=== PATIENT | female | born 1990 | race Caucasian/White ===

== ENCOUNTER 2016-03-17 14:28 | Emergency (ER) | payer OTHER ==
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
[2016-03-17 17:22] VITALS: RESP 18; TEMP 99
[2016-03-17] MEDS ORDERED: IBUPROFEN 400 MG TAB PO STA (17:27)
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
[2016-03-17 17:47] VITALS: BP 115/67; PULSE 89
== END 2016-03-17 18:03 | disposition home or self-care (01) ==
LOC: EC 14:28
DX: S00.83XA Contusion of other part of head, initial encounter (principal); S00.81XA Abrasion of other part of head, initial encounter; K08.89 Other specified disorders of teeth and supporting structures; Y04.2XXA Assault by strike against or bumped into by another person, initial encounter
CPT/HCPCS: 70450; 70486; 72050; 99284

== ENCOUNTER 2016-10-13 10:49 | Emergency (ER) | payer OTHER ==
[2016-10-13] MEDS ORDERED: ACETAMINOPHEN TAB 325 MG TAB PO STA (11:48)
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
--- NOTE | 2016-10-13 12:36 | XR ---
EXAMINATION TYPE: XR ankle complete LT DATE OF EXAM: 10/13/2016 COMPARISON: 3 views HISTORY: Pain TECHNIQUE 3 views FINDINGS: : I see no fracture nor dislocation. Joint spaces are normal. Ankle mortise is anatomic. IMPRESSION: Negative left ankle exam.
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
[2016-10-13 13:03] VITALS: RESP 17
[2016-10-13 13:56] VITALS: BP 105/64; PULSE 87; TEMP 97.9
== END 2016-10-13 14:39 | disposition home or self-care (01) ==
LOC: EC 10:49
DX: S93.402A Sprain of unspecified ligament of left ankle, initial encounter (principal); S00.83XA Contusion of other part of head, initial encounter; S40.021A Contusion of right upper arm, initial encounter; S40.022A Contusion of left upper arm, initial encounter; S80.811A Abrasion, right lower leg, initial encounter; S80.812A Abrasion, left lower leg, initial encounter; F41.9 Anxiety disorder, unspecified; M54.2 Cervicalgia; R68.84 Jaw pain; F17.200 Nicotine dependence, unspecified, uncomplicated; Y04.0XXA Assault by unarmed brawl or fight, initial encounter; Y92.481 Parking lot as the place of occurrence of the external cause
CPT/HCPCS: 70450; 70486; 72125; 99284

== ENCOUNTER 2017-03-21 16:43 | Emergency (ER) | payer OTHER ==
[2017-03-21 16:52] VITALS: BP 132/71; PULSE 98; RESP 16; TEMP 97.2
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
[2017-03-21] MEDS ORDERED: ACETAMINOPHEN TAB 500 MG TAB PO STA (17:50)
--- NOTE | 2017-03-25 01:22 | CDI ---
Dear Tray Perez MD: Please provide information on whether patient is currently as given in Past medical history (14 weeks ). Thank you, Keo Saldivar, Clerical Aide. If you have any questions, please contact [employer] at [phone]. [facility]
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
== END 2017-03-21 18:00 | disposition home or self-care (01) ==
LOC: EC 16:43
DX: S00.03XA Contusion of scalp, initial encounter (principal); J34.89 Other specified disorders of nose and nasal sinuses; R45.83 Excessive crying of child, adolescent or adult; F17.200 Nicotine dependence, unspecified, uncomplicated; Z88.5 Allergy status to narcotic agent; Z88.8 Allergy status to other drugs, medicaments and biological substances; Y04.2XXA Assault by strike against or bumped into by another person, initial encounter
CPT/HCPCS: 70450; 72125; 99284

== ENCOUNTER 2017-05-05 22:22 | Emergency (ER) | payer OTHER ==
[2017-05-05 22:28] VITALS: BP 121/83; PULSE 108; RESP 18; TEMP 97.1
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
== END 2017-05-06 00:01 | disposition home or self-care (01) ==
LOC: EC 22:22
DX: S10.93XA Contusion of unspecified part of neck, initial encounter (principal); S00.83XA Contusion of other part of head, initial encounter; F17.200 Nicotine dependence, unspecified, uncomplicated; Z88.5 Allergy status to narcotic agent; Z88.6 Allergy status to analgesic agent; Y04.2XXA Assault by strike against or bumped into by another person, initial encounter; Y92.009 Unspecified place in unspecified non-institutional (private) residence as the place of occurrence of the external cause
CPT/HCPCS: 70450; 70486; 72125; 99283

== ENCOUNTER 2017-06-10 20:06 | Emergency (ER) | payer OTHER ==
[2017-06-10] MEDS ORDERED: SODIUM CHLORIDE 0.9% 1,000 ML IV STA (21:45)
[2017-06-10] MEDS ORDERED: KETOROLAC 30 MG/ML 1 ML VIAL IVP STA (21:45)
[2017-06-10] MEDS ORDERED: ONDANSETRON 4 MG/2 ML VIAL IVP STA (21:45)
[2017-06-10 22:20] LABS: Basophils # (A) 0.1 k/uL (0-0.2); Basophils % (A) 1 %; Eosinophils # (A) 0.2 k/uL (0-0.7); Eosinophils % (A) 2 %; HCT 35.9 % (34.0-46.0); HGB 11.9 gm/dL (11.4-16.0); Lymphocytes # (A) 1.9 k/uL (1.0-4.8); Lymphocytes % (A) 19 %; MCH 26.7 pg (25.0-35.0); MCHC 33.2 g/dL (31.0-37.0); MCV 80.6 fL (80.0-100.0); Mean Platelet Volume 7.2; Monocytes # (A) 0.6 k/uL (0-1.0); Monocytes % (A) 6 %; Neutrophils # (A) 6.9 k/uL (1.3-7.7); Neutrophils % (A) 70 %; Platelet Count 346 k/uL (150-450); RBC 4.45 m/uL (3.80-5.40); RDW 14.2 % (11.5-15.5); WBC 9.8 k/uL (3.8-10.6)
[2017-06-10 22:24] LABS: Appearance,Urine Cloudy (Clear); Bilirubin,Urine Negative (Negative); Blood,Urine Negative (Negative); Color,Urine Yellow; Glucose,Urine (UA) Negative (Negative); Ketones,Urine Negative (Negative); Leukocyte Esterase,Urine Trace (Negative); Mucus,Urine Many /hpf; Nitrite,Urine Negative (Negative); PH, Urine 7.5 (5.0-8.0); Protein,Urine 1+ (Negative); RBC,Urine 2 /hpf (0-5); Specific Gravity,Urine 1.027 (1.001-1.035); Squamous Epithelial Cell,Urine 8 /hpf (0-4); WBC,Urine 15 /hpf (0-5)
[2017-06-10 22:33] LABS: ALT 12 U/L (9-52); AST 23 U/L (14-36); Albumin 4.4 g/dL (3.5-5.0); Alkaline Phosphatase 62 U/L (38-126); Amylase 43 U/L (30-110); Anion Gap 12 mmol/L; Blood Urea Nitrogen 19 mg/dL (7-17); Calcium 9.7 mg/dL (8.4-10.2); Carbon Dioxide 30 mmol/L (22-30); Chloride 101 mmol/L (98-107); Glucose 82 mg/dL (74-99); Sodium 143 mmol/L (137-145); Total Bilirubin 0.3 mg/dL (0.2-1.3); Total Protein 8.1 g/dL (6.3-8.2)
[2017-06-10 22:34] LABS: Lipase 69 U/L (23-300)
--- NOTE | 2017-06-10 22:37 | ED ---
Abdominal Pain HPI - General Chief Complaint: Abdominal Pain Stated Complaint: abd bloating and pain Time Seen by Provider: 06/10/17 21:21 Source: patient, RN notes reviewed Mode of arrival: ambulatory Limitations: no limitations - History of Present Illness Initial Comments: This is a 26-year-old female who presents to the emergency department with chief complaint of abdominal pain. Patient states that she has been experiencing lower abdominal pain since . She states that she feels bloated. She describes the pain as a constant cramping with intermittent sharp pains that sometimes radiate up to her shoulder. She also reports right-sided flank pain intermittently. Patient states that her last menstrual period was 2 weeks ago. Denies any abnormal vaginal bleeding, discharge or odors. She reports normal bowel movements, denying constipation or diarrhea. Denies vomiting but does admit to associated nausea. She states that she is concerned about a vaginal foreign body as she used a new toy for intercourse with her boyfriend recently and then the pain started. She states that her abdomen does not usually look so distended. - Related Data Previous Rx's Medication Instructions Recorded metroNIDAZOLE [Flagyl] 500 mg PO BID #14 tab 06/11/17 Allergies Allergy/AdvReac Type Severity Reaction Status Date / Time acetaminophen Allergy Unknown Verified 06/10/17 21:20 [From Tylenol-Codeine #3] codeine Allergy Unknown Verified 06/10/17 21:20 [From Tylenol-Codeine #3] Review of Systems ROS Statement: Those systems with pertinent positive or pertinent negative responses have been documented in the HPI. ROS Other: All systems not noted in ROS Statement are negative. Past Medical History Past Medical History: No Reported History Additional Past Medical History / Comment(s): Obstetric history: This is her first and she has had care with me since 14 weeks. A+, abs neg, Rub Imm, RPR NR, Hep B neg, HIV NR. Normal 1hr GTT, GBS neg. History of Any Multi-Drug Resistant Organisms: None Reported Past Surgical History: Section Past Anesthesia/Blood Transfusion Reactions: No Reported Reaction Past Psychological History: Panic Disorder Smoking Status: Current every day smoker Past Alcohol Use History: Occasional Past Drug Use History: None Reported - Past Family History Father Family Medical History: No Reported History General Exam - General Exam Comments Initial Comments: General: Awake and alert, well-developed; in no apparent distress. HEENT: Head atraumatic, normocephalic. Pupils are equal, round and reactive to light. Extraocular movements intact. Oropharynx moist without erythema or exudate. Neck: Supple. Normal ROM. Cardiovascular: Regular rate and rhythm. No murmurs, rubs or gallops. Chest symmetrical. Respiratory: Lungs clear to auscultation bilaterally. No wheezes, rales or rhonchi. Normal respiratory effort with no use of accessory muscles. Abdomen: Soft, non-distended. Generalized tenderness on palpation, especially suprapubically.No rigidity, rebound or guarding. Normal bowel sounds in all 4 quadrants. No CVA tenderness bilaterally. Musculoskeletal: Normal ROM, no tenderness bilateral upper and lower extremities. Ambulating normally. Skin: [place], warm and dry without rashes or lesions. Neurological: Alert and oriented x3. CN II-XII grossly intact. Speech is fluent and answers are appropriate. No focal neuro deficits. Psychiatric: Normal mood and affect. No overt signs of depression or anxiety noted. Limitations: no limitations External exam: Present: normal external exam. Absent: erythema, swelling, lesions Speculum exam: Present: vaginal discharge (white malodorous ), cervical discharge. Absent: erythema Course Vital Signs 06/10/17 20:28 Temperature 98.7 F Pulse Rate 79 Respiratory 20 Rate Blood Pressure 130/72 O2 Sat by Pulse 100 Oximetry Medical Decision Making - Medical Decision Making This is a 26-year-old female who presented to the emergency department with chief complaint of lower abdominal pain and bloating. Vital signs are stable. Patient was also concerned about a potential vaginal foreign body as she has used a new sexual object with her boyfriend and has since noticed a change in vaginal discharge. On speculum examination, there is a thin white malodorous discharge. Trichomonas, Chlamydia and gonorrhea testing is pending. CBC was within normal limits. CMP did reveal a potassium at 3.3 and patient was given oral supplementation. UA revealed trace leukocyte esterase, 15 white blood cells, no blood. Patient is in no acute distress. She will be treated for potential bacterial vaginosis pending STD testing. A urine was sent for culture. KUB revealed a nonacute abdomen. Patient is in no acute distress and will be discharge home at this time. Patient is in agreement with plan and voices understanding. All questions were answered. - Lab Data Result diagrams: 06/10/17 22:02 06/10/17 22:02 Lab Results 06/10/17 06/10/17 06/10/17 Range/Units 22:02 22:02 22:02 WBC 9.8 (3.8-10.6) k/uL RBC 4.45 (3.80-5.40) m/uL Hgb 11.9 (11.4-16.0) gm/dL Hct 35.9 (34.0-46.0) % MCV 80.6 (80.0-100.0) fL MCH 26.7 (25.0-35.0) pg MCHC 33.2 (31.0-37.0) g/dL RDW 14.2 (11.5-15.5) % Plt Count 346 (150-450) k/uL Neutrophils % 70 % Lymphocytes % 19 % Monocytes % 6 % Eosinophils % 2 % Basophils % 1 % Neutrophils # 6.9 (1.3-7.7) k/uL Lymphocytes # 1.9 (1.0-4.8) k/uL Monocytes # 0.6 (0-1.0) k/uL Eosinophils # 0.2 (0-0.7) k/uL Basophils # 0.1 (0-0.2) k/uL Sodium 143 (137-145) mmol/L Potassium 3.3 L (3.5-5.1) mmol/L Chloride 101 (98-107) mmol/L Carbon Dioxide 30 (22-30) mmol/L Anion Gap 12 mmol/L BUN 19 H (7-17) mg/dL Creatinine 0.66 (0.52-1.04) mg/dL Est GFR (CKD-EPI)AfAm >90 (>60 ml/min/1.73 sqM) Est GFR (CKD-EPI)NonAf >90 (>60 ml/min/1.73 sqM) Glucose 82 (74-99) mg/dL Calcium 9.7 (8.4-10.2) mg/dL Total Bilirubin 0.3 (0.2-1.3) mg/dL AST 23 (14-36) U/L ALT 12 (9-52) U/L Alkaline Phosphatase 62 (38-126) U/L Total Protein 8.1 (6.3-8.2) g/dL Albumin 4.4 (3.5-5.0) g/dL Amylase 43 (30-110) U/L Lipase 69 (23-300) U/L Urine Color Urine Appearance (Clear) Urine pH (5.0-8.0) Ur Specific [place] (1.001-1.035) Urine Protein (Negative) Urine Glucose (UA) (Negative) Urine Ketones (Negative) Urine Blood (Negative) Urine Nitrite (Negative) Urine Bilirubin (Negative) Urine Urobilinogen (<2.0) mg/dL Ur Leukocyte Esterase (Negative) Urine RBC (0-5) /hpf Urine WBC (0-5) /hpf Ur Squamous Epith Cells (0-4) /hpf Urine Mucus (None) /hpf Urine HCG, Qual Not Detected (Not Detectd) 06/10/17 Range/Units 22:02 WBC (3.8-10.6) k/uL RBC (3.80-5.40) m/uL Hgb (11.4-16.0) gm/dL Hct (34.0-46.0) % MCV (80.0-100.0) fL MCH (25.0-35.0) pg MCHC (31.0-37.0) g/dL RDW (11.5-15.5) % Plt Count (150-450) k/uL Neutrophils % % Lymphocytes % % Monocytes % % Eosinophils % % Basophils % % Neutrophils # (1.3-7.7) k/uL Lymphocytes # (1.0-4.8) k/uL Monocytes # (0-1.0) k/uL Eosinophils # (0-0.7) k/uL Basophils # (0-0.2) k/uL Sodium (137-145) mmol/L Potassium (3.5-5.1) mmol/L Chloride (98-107) mmol/L Carbon Dioxide (22-30) mmol/L Anion Gap mmol/L BUN (7-17) mg/dL Creatinine (0.52-1.04) mg/dL Est GFR (CKD-EPI)AfAm (>60 ml/min/1.73 sqM) Est GFR (CKD-EPI)NonAf (>60 ml/min/1.73 sqM) Glucose (74-99) mg/dL Calcium (8.4-10.2) mg/dL Total Bilirubin (0.2-1.3) mg/dL AST (14-36) U/L ALT (9-52) U/L Alkaline Phosphatase (38-126) U/L Total Protein (6.3-8.2) g/dL Albumin (3.5-5.0) g/dL Amylase (30-110) U/L Lipase (23-300) U/L Urine Color Yellow Urine Appearance Cloudy H (Clear) Urine pH 7.5 (5.0-8.0) Ur Specific [place] 1.027 (1.001-1.035) Urine Protein 1+ H (Negative) Urine Glucose (UA) Negative (Negative) Urine Ketones Negative (Negative) Urine Blood Negative (Negative) Urine Nitrite Negative (Negative) Urine Bilirubin Negative (Negative) Urine Urobilinogen 2.0 (<2.0) mg/dL Ur Leukocyte Esterase Trace H (Negative) Urine RBC 2 (0-5) /hpf Urine WBC 15 H (0-5) /hpf Ur Squamous Epith Cells 8 H (0-4) /hpf Urine Mucus Many H (None) /hpf Urine HCG, Qual (Not Detectd) Disposition Clinical Impression: Abdominal pain, Vaginal discharge Disposition: HOME SELF-CARE Condition: Good Instructions: Abdominal Pain (ED), Vaginal Discharge (ED) Additional Instructions: Please take medications as prescribed. Please follow up with primary care provider within 1-2 days. Return to emergency department if symptoms should worsen or any concerns arise. Prescriptions: metroNIDAZOLE [Flagyl] 500 mg PO BID #14 tab Is patient prescribed a controlled substance at discharge?: No Referrals: None,Stated [Primary Care Provider] - 1-2 days Time of Disposition: 00:22
[2017-06-10 23:02] LABS: Potassium 3.3 mmol/L (3.5-5.1)
[2017-06-10] MEDS ORDERED: POTASSIUM CHLORIDE ER 20 MEQ TAB.ER PO STA (23:31)
--- NOTE | 2017-06-10 23:41 | XR ---
EXAMINATION TYPE: XR KUB DATE OF EXAM: 06/10/2017 COMPARISON: 07/03/2012 HISTORY: Abdominal pain and bloating TECHNIQUE: 2 views FINDINGS: Bowel gas pattern is normal. There is no sign of intestinal obstruction or pneumoperitoneum . Fecal pattern is normal. Lung bases are clear. There are no pathologic calcifications over the kidn eys. IMPRESSION: Nonacute abdomen. No change.
[2017-06-11 00:23] VITALS: BP 102/58; PULSE 65; RESP 14; TEMP 97.9
[2017-06-13 16:30] LABS: C. trachomatis,PCR Positive (Neg,Equiv); Chlamydia trachomatis Source Vagina
[2017-06-13 16:37] LABS: N. gonorrhoeae,PCR Negative (Neg,Equiv); Neisseria Source Vagina
== END 2017-06-11 00:45 | disposition home or self-care (01) ==
LOC: EC 20:06
DX: N89.8 Other specified noninflammatory disorders of vagina (principal); R10.30 Lower abdominal pain, unspecified; R14.0 Abdominal distension (gaseous); R11.0 Nausea; F17.200 Nicotine dependence, unspecified, uncomplicated; Z87.42 Personal history of other diseases of the female genital tract; Z88.5 Allergy status to narcotic agent; Z88.6 Allergy status to analgesic agent; Z98.890 Other specified postprocedural states
CPT/HCPCS: 36415; 80053; 82150; 83690; 85025; 81001; 81025; 87808; 87491; 87591; 87086; 74018; 99284; 96374; 96375; J2405; J1885

== ENCOUNTER 2018-01-29 03:18 | Emergency (ER) | payer OTHER ==
[2018-01-29] MEDS ORDERED: SODIUM CHLORIDE 0.9% 1,000 ML IV ONE (04:10)
[2018-01-29] MEDS ORDERED: MORPHINE SULFATE 4 MG/ML SYRINGE IVP STA (04:10)
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
[2018-01-29 04:34] LABS: Appearance,Urine Clear (Clear); Bilirubin,Urine Negative (Negative); Blood,Urine Negative (Negative); Color,Urine Yellow; Glucose,Urine (UA) Negative (Negative); Ketones,Urine Negative (Negative); Leukocyte Esterase,Urine Negative (Negative); Nitrite,Urine Negative (Negative); Protein,Urine Trace (Negative); Specific Gravity,Urine 1.026 (1.001-1.035); Urobilinogen,Urine <2.0 mg/dL (<2.0)
[2018-01-29 04:39] LABS: Basophils # (A) 0.1 k/uL (0-0.2); Basophils % (A) 1 %; Eosinophils # (A) 0.5 k/uL (0-0.7); Eosinophils % (A) 5 %; HCT 36.1 % (34.0-46.0); Lymphocytes # (A) 3.8 k/uL (1.0-4.8); Lymphocytes % (A) 39 %; MCH 28.5 pg (25.0-35.0); MCHC 33.2 g/dL (31.0-37.0); MCV 85.9 fL (80.0-100.0); Mean Platelet Volume 6.7; Monocytes # (A) 0.5 k/uL (0-1.0); Monocytes % (A) 5 %; Neutrophils # (A) 4.7 k/uL (1.3-7.7); Neutrophils % (A) 48 %; Platelet Count 321 k/uL (150-450); RBC 4.21 m/uL (3.80-5.40); WBC 9.9 k/uL (3.8-10.6)
[2018-01-29 04:43] LABS: ALT 16 U/L (9-52); AST 18 U/L (14-36); Alkaline Phosphatase 37 U/L (38-126); Anion Gap 9 mmol/L; Blood Urea Nitrogen 20 mg/dL (7-17); Calcium 9.4 mg/dL (8.4-10.2); Carbon Dioxide 24 mmol/L (22-30); Chloride 108 mmol/L (98-107); Glucose 87 mg/dL (74-99); Potassium 4.1 mmol/L (3.5-5.1); Sodium 141 mmol/L (137-145); Total Bilirubin 0.2 mg/dL (0.2-1.3); Total Protein 7.3 g/dL (6.3-8.2)
[2018-01-29 04:59] LABS: HCG,Quantitative Serum <2.4 mIU/mL
--- NOTE | 2018-01-29 05:30 | US ---
EXAMINATION TYPE: US transvaginal DATE OF EXAM: 01/29/2018 COMPARISON: NONE CLINICAL HISTORY: Pain. Pain TECHNIQUE: Transvaginal (TV). Transabdominal sonographic images of the pelvis were acquired. Trans vaginal sonographic images were medically necessary to better assess the following anatomy: EXAM MEASUREMENTS: Uterus: 8.4 x 3.9 x 3.8 cm Endometrial Stripe: 1.4 cm Right Ovary: 3.6 x 3.3 x 3.4 cm Left Ovary: 3.1 x 1.8 x 1.5 cm 1. Uterus: Anteverted wnl 2. Endometrium: wnl 3. Right Ovary: wnl 4. Left Ovary: wnl Spectral, color and waveform doppler imaging shows good arterial and venous flow within the ovaries ; there is no evidence for ovarian torsion. 5. Bilateral Adnexa: wnl 6. Posterior cul-de-sac: wnl IMPRESSION: Normal uterus and endometrium. Normal ovaries. No evidence of ovarian torsion.
[2018-01-29 05:55] VITALS: RESP 19
[2018-01-29 06:59] VITALS: BP 98/59; PULSE 78; TEMP 97.1
== END 2018-01-29 06:56 | disposition home or self-care (01) ==
LOC: EC 03:18
DX: R10.2 Pelvic and perineal pain (principal); R39.89 Other symptoms and signs involving the genitourinary system; R11.0 Nausea; F17.200 Nicotine dependence, unspecified, uncomplicated; Z88.5 Allergy status to narcotic agent; Z88.6 Allergy status to analgesic agent
CPT/HCPCS: 36415; 86900; 86901; 80053; 85025; 86850; 81003; 81025; 84702; 93975; 76830; 99284; 96374; J2270

== ENCOUNTER 2018-04-16 11:09 | Emergency (ER) | payer OTHER ==
[2018-04-16 11:14] VITALS: BP 108/78; PULSE 90; RESP 18; TEMP 98.8
[2018-04-16] MEDS ORDERED: ACETAMINOPHEN TAB 500 MG TAB PO STA (12:17)
--- NOTE | 2018-04-16 12:26 | ED ---
General Adult HPI - General Chief complaint: Extremity Problem,Nontraumatic Stated complaint: rt shoulder pain Time Seen by Provider: 04/16/18 12:03 Source: patient, RN notes reviewed Mode of arrival: ambulatory Limitations: no limitations - History of Present Illness Initial comments: Patient is a 27-year-old female who presents to the emergency department with complaint of right shoulder pain that has worsened in the past 3 days after she lifted her 3-year-old daughter. She states that she started having some mild right shoulder pain a couple months ago, but denies any injury at that time. She does recall that a few years ago she fell while rollerblading and tore something in one of her shoulders, however she is not sure which one. She has been taking ibuprofen at home for pain. The pain is worse with lifting things and reaching upward. The pain is better with supporting the right arm with the left arm. Patient denies any possibility of . Patient denies any recent fever, chills, shortness of breath, chest pain, back pain, abdominal pain , nausea or vomiting, dysuria or hematuria, constipation or diarrhea, headaches or visual changes, or any other complaints. - Related Data Home Medications Medication Instructions Recorded Confirmed Biotin 5 mg PO DAILY 04/16/18 04/16/18 Ibuprofen [Motrin Ib] 800 mg PO TID PRN 04/16/18 04/16/18 Previous Rx's Medication Instructions Recorded Orphenadrine [Norflex] 100 mg PO Q12H #20 tablet.er 04/16/18 Allergies Allergy/AdvReac Type Severity Reaction Status Date / Time codeine AdvReac "PASSED Verified 04/16/18 11:27 [From Tylenol-Codeine #3] OUT" Review of Systems ROS Statement: Those systems with pertinent positive or pertinent negative responses have been documented in the HPI. ROS Other: All systems not noted in ROS Statement are negative. Past Medical History Past Medical History: No Reported History Additional Past Medical History / Comment(s): Obstetric history: This is her first and she has had care with me since 14 weeks. A+, abs neg, Rub Imm, RPR NR, Hep B neg, HIV NR. Normal 1hr GTT, GBS neg. History of Any Multi-Drug Resistant Organisms: None Reported Past Surgical History: Section Past Anesthesia/Blood Transfusion Reactions: No Reported Reaction Past Psychological History: Anxiety, Panic Disorder Smoking Status: Current some day smoker Past Alcohol Use History: Occasional Past Drug Use History: None Reported - Past Family History Father Family Medical History: No Reported History General Exam Limitations: no limitations General appearance: alert, in no apparent distress Head exam: Present: atraumatic, normocephalic Eye exam: Present: normal appearance Neck exam: Present: normal inspection, full ROM. Absent: tenderness Respiratory exam: Present: normal lung sounds bilaterally. Absent: wheezes, rales, rhonchi Cardiovascular Exam: Present: regular rate, normal rhythm Extremities exam: Present: normal inspection, normal capillary refill, other ( Radial pulses palpable and strong bilaterally. Sensation intact bilateral upper extremities. Right shoulder AROM limited due to pain. 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 ) Neurological exam: Present: alert, oriented X3 Course Vital Signs 04/16/18 11:09 Temperature 98.8 F Pulse Rate 90 Respiratory 18 Rate Blood Pressure 108/78 O2 Sat by Pulse 98 Oximetry Medical Decision Making - Medical Decision Making Patient given Tylenol here. Right shoulder x-ray is negative. Will place right upper extremity in a sling for 2 days. Patient states she does not need a prescription for ibuprofen. Will prescribe Norflex. Will refer to orthopedics. Case discussed in detail with attending physician Dr. Feliz. Disposition Clinical Impression: Right shoulder strain Disposition: HOME SELF-CARE Condition: Good Instructions (If sedation given, give patient instructions): Muscle Strain (ED) Additional Instructions: Follow-up with your PCP and orthopedics in 1-2 days. You may use the right upper extremity sling for 2 days. Take ibuprofen as needed for pain. Take Norflex as needed for muscle pain/spasms. Return to the emergency department if your symptoms worsen or other concerns. Prescriptions: Orphenadrine [Norflex] 100 mg PO Q12H #20 tablet.er Is patient prescribed a controlled substance at d/c from ED?: No Referrals: Di Landa MD [Primary Care Provider] - 1-2 days Sterling Herbert MD [STAFF PHYSICIAN] - 1-2 days Time of Disposition: 13:04
--- NOTE | 2018-04-16 12:37 | XR ---
EXAMINATION TYPE: XR shoulder complete RT DATE OF EXAM: 04/16/2018 COMPARISON: None HISTORY: Pain TECHNIQUE: Three views are submitted. FINDINGS: The osseous structures are intact. There is no acute fracture or dislocation. The AC joint is maint ained. IMPRESSION: 1. No acute process.
== END 2018-04-16 13:21 | disposition home or self-care (01) ==
LOC: EC 11:09
DX: S46.911A Strain of unspecified muscle, fascia and tendon at shoulder and upper arm level, right arm, initial encounter (principal); F17.200 Nicotine dependence, unspecified, uncomplicated; Z79.899 Other long term (current) drug therapy; Z88.5 Allergy status to narcotic agent; Z88.6 Allergy status to analgesic agent; X50.0XXA Overexertion from strenuous movement or load, initial encounter
CPT/HCPCS: 99283

== ENCOUNTER → 2018-06-06 | Outpatient (CLI) | payer OTHER ==
--- NOTE | 2018-06-09 10:14 | USB ---
Reason for exam: clinical finding. History: Family history of breast cancer in grandmother at age 68. Indicated problem(s): palpable abnormality in the right breast. Physical Findings: Nurse Summary: right breast palpable 7 o'clock 2 x 1.5cm, tender, movable (nurse ts). US Breast RT Right complete breast ultrasound includes all four quadrants, the retroareolar region and axilla. Finding demonstrates no cystic or solid lesion seen. These results were verbally communicated with the patient and result sheet given to the patient on 06/06/18. ASSESSMENT: Negative, BI-RAD 1 RECOMMENDATION: Clinical management of the right breast. Manage patient on a clinical basis.
== END ==
LOC: RADUSWWP 14:56
PROVIDERS: ATTEND Family Medicine
DX: N63.10 Unspecified lump in the right breast, unspecified quadrant (principal)

== ENCOUNTER → 2018-08-25 | Outpatient (CLI) | payer OTHER ==
--- NOTE | 2018-08-25 19:05 | US ---
EXAMINATION TYPE: Transabdominal DATE OF EXAM: 08/25/2018 4:11 PM COMPARISON: NONE CLINICAL HISTORY: Z36 Confirm Dates. Patient stated unsure of dates; ; C Section x 1. EXAM PERFORMED: Transabdominal (TA) EXAM MEASUREMENTS: GESTATIONAL AGE / DATING Physician Established: Not yet established Dates by LMP: LMP unknown Dates by Current Scan for: (12 weeks/6 days) EDC: 03/03/2019 MATERNAL ANATOMY Uterus: 12.7 x 9.6 x 5.8cm Right Ovary: 4.3 x 2.9 x 2.9cm Left Ovary: 2.2 x 5.6 x 3.1cm Post CDS / Adnexa: wnl Presence of free fluid: no Presence of corpus luteal cyst: possibly in right ovary = 2.0 x 1.6 x 1.9cm Presence of subchorionic bleed: no GESTATION / SURVEY CRL: 6.5cm (12 weeks/6 days) Yolk Sac (normal less than 6mm): not seen Heart Rate: 157 bpm Rhythm: Normal IUP: Viable IUP Nuchal Translucency 10-14wks (normal less than 3mm): 1.3mm Date of LMP: unknown Beta HcG (if available): Not available at this time Single, viable IUP, 12 weeks/6 days, EDC: 03/03/2019, HR 157bpm. IMPRESSION: Single, viable IUP, 12 weeks/6 days, EDC: 03/03/2019, HR 157bpm.
== END | disposition home or self-care (01) ==
LOC: RADUSWWP 15:44
PROVIDERS: ATTEND Obstetrics & Gynecology
DX: Z36.89 Encounter for other specified antenatal screening (principal)
CPT/HCPCS: 76801; 76813

== ENCOUNTER 2018-10-07 21:30 | Emergency (ER) | payer OTHER ==
[2018-10-07 21:48] VITALS: RESP 16
--- NOTE | 2018-10-07 22:15 | ED ---
Psych HPI - General Source: patient Mode of arrival: ambulatory <Di Jarvis - Last Filed: 10/07/18 23:28> <Giovani Dominguez - Last Filed: 10/08/18 03:06> - General Chief Complaint: Psychiatric Symptoms Stated Complaint: Mental health, 19 weeks Time Seen by Provider: 10/07/18 21:50 - History of Present Illness Initial Comments: Patient is a 28-year-old female presenting to the emergency Department with complaints of suicidal ideation since this morning. Patient is 19 weeks . Patient's OB is Dr. Han. Patient states she has a history of depression and anxiety and used to be on medications before this . Patient states she did tell stopped taking the medication secondary to the . Patient states she had her daughter with her for most the day and then when she went back with her father patient states she became more and more depressed. Patient states she was driving around and then had urges to crash with another vehicle. Patient states she does not want to harm anybody else so that's why she drove here instead. Patient admits to marijuana use. Patient denies other drug or alcohol use. Patient denies homicidal thoughts. Patient states she did make an appointment with a psychiatrist for next week. Patient denies any other medical history. No other complaints at this time. Patient denies fever, chills, vomiting, abdominal pain, vaginal bleeding. (Rubi Jarvis) - Related Data Home Medications Medication Instructions Recorded Confirmed No Known Home Medications 10/07/18 10/07/18 Allergies Allergy/AdvReac Type Severity Reaction Status Date / Time codeine AdvReac "PASSED Verified 10/07/18 22:14 [From Tylenol-Codeine #3] OUT" Review of Systems ROS Other: All systems not noted in ROS Statement are negative. <Di Jarvis - Last Filed: 10/07/18 23:28> ROS Other: All systems not noted in ROS Statement are negative. <Giovani Dominguez - Last Filed: 10/08/18 03:06> ROS Statement: Those systems with pertinent positive or pertinent negative responses have been documented in the HPI. Past Medical History Past Medical History: No Reported History Additional Past Medical History / Comment(s): Obstetric history: This is her first and she has had care with me since 14 weeks. A+, abs neg, Rub Imm, RPR NR, Hep B neg, HIV NR. Normal 1hr GTT, GBS neg. History of Any Multi-Drug Resistant Organisms: None Reported Past Surgical History: Section Past Anesthesia/Blood Transfusion Reactions: No Reported Reaction Past Psychological History: Anxiety, Panic Disorder Smoking Status: Current some day smoker Past Alcohol Use History: Occasional Past Drug Use History: None Reported - Past Family History Father Family Medical History: No Reported History <Di Jarvis - Last Filed: 10/07/18 23:28> General Exam Limitations: no limitations <Di Jarvis - Last Filed: 10/07/18 23:28> - General Exam Comments Initial Comments: GENERAL: Well-appearing, well-nourished and in no acute distress. Patient is upset and crying during exam. HEAD: Atraumatic, normocephalic. EYES: Pupils equal round and reactive to light, extraocular movements intact, sclera anicteric, conjunctiva are normal. ENT: TMs normal, nares patent, oropharynx clear without exudates. Moist mucous membranes. NECK: Normal range of motion, supple without lymphadenopathy or JVD. LUNGS: Breath sounds clear to auscultation bilaterally and equal. No wheezes rales or rhonchi. HEART: Regular rate and rhythm without murmurs, rubs or gallops. ABDOMEN: Soft, nontender, normoactive bowel sounds. No guarding, no rebound. No masses appreciated. Patient is 19 weeks . : Deferred EXTREMITIES: Normal range of motion, no pitting or edema. No clubbing or cyanosis. NEUROLOGICAL: Cranial nerves II through XII grossly intact. Normal speech, normal gait. PSYCH: Patient is crying during exam, anxious. SKIN: Warm, Dry, normal turgor, no rashes or lesions noted. (Di Jarvis) Course Vital Signs 10/07/18 21:45 Temperature 97.5 F L Pulse Rate 112 H Respiratory 16 Rate Blood Pressure 113/75 O2 Sat by Pulse 99 Oximetry Medical Decision Making - Lab Data Result diagrams: 10/07/18 22:20 10/07/18 22:20 <Di Jarvis - Last Filed: 10/07/18 23:28> - Lab Data Result diagrams: 10/07/18 22:20 10/07/18 22:20 <Giovani Dominguez - Last Filed: 10/08/18 03:06> - Medical Decision Making Patient is a 28-year-old female presenting after having homicidal thoughts of driving her car today. Patient is 19 weeks . Patient states she has been depressed and anxious during this whole . Patient states she feels really alone. Patient was driving around today and had thoughts of crash ing her vehicle with another car. Patient states she does not want to harm anybody else's foot she drove here instead and would like treatment. BAP 0.0. CBC, CMP are within normal limits. UA shows no signs of infection. Urine tox is only positive for marijuana. EPS was made aware of patient. (Di Jarvis) - Lab Data Lab Results 10/07/18 10/07/18 10/07/18 Range/Units 22:20 22:20 22:20 WBC 10.8 H (3.8-10.6) k/uL RBC 3.75 L (3.80-5.40) m/uL Hgb 10.9 L (11.4-16.0) gm/dL Hct 33.3 L (34.0-46.0) % MCV 88.7 (80.0-100.0) fL MCH 29.0 (25.0-35.0) pg MCHC 32.7 (31.0-37.0) g/dL RDW 14.1 (11.5-15.5) % Plt Count 266 (150-450) k/uL Neutrophils % 66 % Lymphocytes % 22 % Monocytes % 6 % Eosinophils % 4 % Basophils % 0 % Neutrophils # 7.2 (1.3-7.7) k/uL Lymphocytes # 2.4 (1.0-4.8) k/uL Monocytes # 0.6 (0-1.0) k/uL Eosinophils # 0.4 (0-0.7) k/uL Basophils # 0.0 (0-0.2) k/uL Sodium 137 (137-145) mmol/L Potassium 3.5 (3.5-5.1) mmol/L Chloride 106 (98-107) mmol/L Carbon Dioxide 24 (22-30) mmol/L Anion Gap 7 mmol/L BUN 12 (7-17) mg/dL Creatinine 0.50 L (0.52-1.04) mg/dL Est GFR (CKD-EPI)AfAm >90 (>60 ml/min/1.73 sqM) Est GFR (CKD-EPI)NonAf >90 (>60 ml/min/1.73 sqM) Glucose 78 (74-99) mg/dL Calcium 9.1 (8.4-10.2) mg/dL Total Bilirubin 0.2 (0.2-1.3) mg/dL AST 18 (14-36) U/L ALT 11 (9-52) U/L Alkaline Phosphatase 42 (38-126) U/L Total Protein 6.9 (6.3-8.2) g/dL Albumin 3.6 (3.5-5.0) g/dL Urine Color Light Yellow Urine Appearance Clear (Clear) Urine pH 7.0 (5.0-8.0) Ur Specific Daniel 1.007 (1.001-1.035) Urine Protein Negative (Negative) Urine Glucose (UA) Negative (Negative) Urine Ketones Negative (Negative) Urine Blood Negative (Negative) Urine Nitrite Negative (Negative) Urine Bilirubin Negative (Negative) Urine Urobilinogen <2.0 (<2.0) mg/dL Ur Leukocyte Esterase Negative (Negative) Urine Opiates Screen Not Detected (NotDetected) Ur Oxycodone Screen Not Detected (NotDetected) Urine Methadone Screen Not Detected (NotDetected) Ur Propoxyphene Screen Not Detected (NotDetected) Ur Barbiturates Screen Not Detected (NotDetected) U Tricyclic Antidepress Not Detected (NotDetected) Ur Phencyclidine Scrn Not Detected (NotDetected) Ur Amphetamines Screen Not Detected (NotDetected) U Methamphetamines Scrn Not Detected (NotDetected) U Benzodiazepines Scrn Not Detected (NotDetected) Urine Cocaine Screen Not Detected (NotDetected) U Marijuana (THC) Screen Detected H (NotDetected) Disposition <Di Jarvis - Last Filed: 10/07/18 23:28> Is patient prescribed a controlled substance at d/c from ED?: No <Giovani Dominguez - Last Filed: 10/08/18 03:06> Clinical Impression: Mood disorder Disposition: HOME SELF-CARE Condition: Good Instructions (If sedation given, give patient instructions): Mood Disorders (ED) Referrals: Di Landa MD [Primary Care Provider] - 1-2 days
[2018-10-07 22:27] LABS: Basophils % (A) 0 %; Eosinophils # (A) 0.4 k/uL (0-0.7); Eosinophils % (A) 4 %; HCT 33.3 % (34.0-46.0); HGB 10.9 gm/dL (11.4-16.0); Lymphocytes # (A) 2.4 k/uL (1.0-4.8); Lymphocytes % (A) 22 %; MCHC 32.7 g/dL (31.0-37.0); MCV 88.7 fL (80.0-100.0); Mean Platelet Volume 7.4; Monocytes # (A) 0.6 k/uL (0-1.0); Monocytes % (A) 6 %; Neutrophils # (A) 7.2 k/uL (1.3-7.7); Neutrophils % (A) 66 %; Platelet Count 266 k/uL (150-450); RBC 3.75 m/uL (3.80-5.40); RDW 14.1 % (11.5-15.5); WBC 10.8 k/uL (3.8-10.6)
[2018-10-07 22:28] LABS: Appearance,Urine Clear (Clear); Bilirubin,Urine Negative (Negative); Blood,Urine Negative (Negative); Color,Urine Light Yellow; Glucose,Urine (UA) Negative (Negative); Ketones,Urine Negative (Negative); Leukocyte Esterase,Urine Negative (Negative); Nitrite,Urine Negative (Negative); Protein,Urine Negative (Negative); Specific Gravity,Urine 1.007 (1.001-1.035); Urobilinogen,Urine <2.0 mg/dL (<2.0)
[2018-10-07 22:39] LABS: ALT 11 U/L (9-52); AST 18 U/L (14-36); African American GFR (CKD) >90 (>60 ml/min/1.73 sqM); Albumin 3.6 g/dL (3.5-5.0); Alkaline Phosphatase 42 U/L (38-126); Amphetamine Screen,Urine Not Detected (NotDetected); Anion Gap 7 mmol/L; Barbiturate Screen,Urine Not Detected (NotDetected); Benzodiazepines Screen,Urine Not Detected (NotDetected); Blood Urea Nitrogen 12 mg/dL (7-17); Calcium 9.1 mg/dL (8.4-10.2); Carbon Dioxide 24 mmol/L (22-30); Chloride 106 mmol/L (98-107); Cocaine Screen,Urine Not Detected (NotDetected); Glucose 78 mg/dL (74-99); Methadone Screen, Urine Not Detected (NotDetected); Opiate Screen,Urine Not Detected (NotDetected); Oxycodone Screen, Urine Not Detected (NotDetected); Phencyclidine Screen,Urine Not Detected (NotDetected); Potassium 3.5 mmol/L (3.5-5.1); Sodium 137 mmol/L (137-145); Total Bilirubin 0.2 mg/dL (0.2-1.3); Total Protein 6.9 g/dL (6.3-8.2); Tricyclic Antidepressant,Urine Not Detected (NotDetected); Urn Cannabinoid Scrn Detected (NotDetected)
[2018-10-07] MEDS ORDERED: ONDANSETRON ODT 4 MG TAB PO STA (23:48)
[2018-10-08 03:32] VITALS: BP 103/71; PULSE 60; TEMP 98.3
== END 2018-10-08 03:32 | disposition home or self-care (01) ==
LOC: EC 21:30
DX: O99.342 Other mental disorders complicating pregnancy, second trimester (principal); R45.851 Suicidal ideations; F32.9 Major depressive disorder, single episode, unspecified; F41.9 Anxiety disorder, unspecified; O99.333 Smoking (tobacco) complicating pregnancy, third trimester; O99.322 Drug use complicating pregnancy, second trimester; F12.90 Cannabis use, unspecified, uncomplicated; Z3A.19 19 weeks gestation of pregnancy; Z88.5 Allergy status to narcotic agent; Z88.6 Allergy status to analgesic agent
CPT/HCPCS: 36415; 80053; 80306; 81003; 82075; 85025; 99285

== ENCOUNTER 2018-12-29 14:57 | Outpatient (CLI) | payer OTHER ==
[2018-12-29 15:39] VITALS: BP 110/64; PULSE 76; RESP 18; TEMP 97.2
[2018-12-29 16:28] LABS: Appearance,Urine Clear (Clear); Bilirubin,Urine Negative (Negative); Blood,Urine Negative (Negative); Color,Urine Yellow; Glucose,Urine (UA) Negative (Negative); Ketones,Urine 1+ (Negative); Leukocyte Esterase,Urine Negative (Negative); Mucus,Urine Moderate /hpf; Nitrite,Urine Negative (Negative); PH, Urine 6.5 (5.0-8.0); Protein,Urine 1+ (Negative); RBC,Urine 1 /hpf (0-5); Specific Gravity,Urine 1.036 (1.001-1.035); Squamous Epithelial Cell,Urine 6 /hpf (0-4); WBC,Urine 1 /hpf (0-5)
--- NOTE | 2019-01-13 08:25 | P.MSEPDOC ---
Presenting Problems - Arrival Data Date of Arrival on Unit: 12/29/18 Time of Arrival on Unit: 14:57 Mode of Transport: Wheelchair - Complaint OB-Reason for Admission/Chief Complaint: Pain Comment: "pressure/burning left of umbilicus" which, "worsens with movement." Medical History - Information : 3 Para: 1 Term: 1 : 0 Abortions: Spontaneous or Elective: 1 Number of Living Children: 1 - Gestational Age Gestational Age by ANGELO (wks/days): 31 Weeks and 2 Days Review of Systems - Review of Systems Constitutional: No problems Breast: No problems ENT: No problems Cardiovascular: No problems Respiratory: No problems Gastrointestinal: No problems Genitourinary: No problems Musculoskeletal: No problems Neurological: No problems Skin: No problems Vital Signs - Temperature Temperature: 97.2 F Temperature Source: Temporal Artery Scan - Pulse Right Pulse Rate: 76 Pulse Assessment Method: Automatic Cuff - Respirations Respiratory Rate: 18 Oxygen Delivery Method: Room Air - Blood Pressure Right Arm Blood Pressure: 110/64 Blood Pressure Mean: 79 Blood Pressure Source: Automatic Cuff Medical Screen Scoring (Pre) - Cervical Exam Dilation: Exam Deferred Effacement: Exam Deferred Membranes: Intact - Uterine Contractions Frequency: N/A Duration: N/A Intensity: N/A - Maternal Vital Signs Maternal Temperature: N/A Maternal Blood Pressure: N/A Signs of Preeclampsia: N/A Maternal Respirations: N/A - Maternal Trauma Maternal Trauma: N/A - Assessment - Baby A Baseline FHR: 135 Heart Rate - NICHD Category: Category I (Normal) = 0 NST: Reactive Position: N/A Station: N/A - Total Score - Baby A Total Score - Baby A: 0 - Total Score - Baby B Total Score - Baby B: 0 - Total Score - Baby C Total Score - Baby C: 0 - Level of Risk - Baby A Level of Risk - Baby A: Low (0-5) - Level of Risk - Baby B Level of Risk - Baby B: Low (0-5) - Level of Risk - Baby C Level of Risk - Baby C: Low (0-5) Physician Notification (Pre) - Physician Notified Physician Notified Date: 12/29/18 Physician Notified Time: 15:25 New Order Received: Yes - Notification Comment Comment: ORders for UA, FFN, Cervical exam. If closed, don't send FFN. If closed and urine is clear, pt clear for d/c home with follow up instructions. Medical Screen Scoring (Post) - Cervical Exam Dilation: 0 cm = 0 Effacement: Exam Deferred Membranes: Intact - Uterine Contractions Frequency: N/A Duration: N/A Intensity: N/A - Maternal Vital Signs Maternal Temperature: N/A Maternal Blood Pressure: N/A Signs of Preeclampsia: N/A Maternal Respirations: N/A - Pain Assessment Pain Location and Character: Abdomen Pain Scale Used: Numeric (1 - 10) Pain Intensity: 4 Pain Management Goal: 0 Pain Description: *Acute, Burning, Pressure Pain Radiation Location: none Pain Frequency: Occasional Pain Duration Units: Minutes Pain Behavior: Vocalization Pain Aggravating Factors: Activity, Position Non-Pharmacological Interventions: Position/Reposition - Maternal Trauma Maternal Trauma: N/A - Assessment - Baby A Heart Rate: 135 Heart Rate - NICHD Category: Category I (Normal) = 0 NST: Reactive Position: N/A Station: N/A - Total Score Total Score - Baby A: 0 Total Score - Baby B: 0 Total Score - Baby C: 0 - Post Treatment Level of Risk Post Treatment Level of Risk - Baby A: Low (0-5) Post Treatment Level of Risk - Baby B: Low (0-5) Post Treatment Level of Risk - Baby C: Low (0-5) Physician Notification (Post) - Physician Notified Physician Notified Date: 12/29/18 Physician Notified Time: 16:34 Physician/Practitioner Notified:: Spoke With: Dr. Sharma New Order Received: No - Notification Comment Comment: Pt clear for d/c home and this time with follow up instructions. Pt to call Dr. Maldonado off for follow up apt this week in office. Disposition - Disposition OB Disposition: Discharge to home Discharge Date: 12/29/18 Discharge Time: 16:34 I agree with the RN Medical Screening Exam: Yes Risk & Benefit of care provided described in d/c instruction: Yes Diagnosis: RELATED CONDITIONS, UNSP, UNSPECIFIED TRIMESTER
== END 2018-12-29 16:40 | disposition home or self-care (01) ==
LOC: FBPOP 14:57
PROVIDERS: ATTEND Obstetrics & Gynecology
DX: O26.93 Pregnancy related conditions, unspecified, third trimester (principal)
CPT/HCPCS: 59025; 81001; G0463; 99213

== ENCOUNTER 2019-07-29 11:40 | Emergency (ER) | payer OTHER ==
[2019-07-29 11:45] VITALS: BP 102/58; PULSE 78; RESP 18; TEMP 98.3
--- NOTE | 2019-07-29 12:11 | XR ---
EXAMINATION TYPE: XR hand complete LT DATE OF EXAM: 07/29/2019 COMPARISON: NONE HISTORY: Pain TECHNIQUE: Three views are submitted. FINDINGS: There is a lucency through the trapezoid. The seen on the oblique image. This is suspicious for a fra cture. The remaining osseous structures intact. There is soft tissue edema. Joint spaces preserved. IMPRESSION: 1. Findings suspicious for a fracture involving the trapezoid correlate with point tenderness.
--- NOTE | 2019-07-29 12:19 | ED ---
Upper Extremity HPI - General Chief Complaint: Extremity Injury, Upper Stated Complaint: hand injury Time Seen by Provider: 07/29/19 11:47 Source: patient Mode of arrival: ambulatory Limitations: no limitations - History of Present Illness Initial Comments: 28 year female presenting for left hand injury. Patient states she slammed her hand a door yesterday she states she has pain at the base of her thumb. Patient states she is able to move the area however is painful denies any numbness tingling loss of sensation coolness pallor of the extremity denies any other areas of injury denies fall or trauma to head or neck. Remaining review of system negative patient denies any open lacerations or abrasions. - Related Data Home Medications Medication Instructions Recorded Confirmed Pnv,Calcium 72/Iron/Folic Acid 1 each PO DAILY 12/29/18 12/29/18 [ Plus Tablet] Allergies Allergy/AdvReac Type Severity Reaction Status Date / Time No Known Allergies Allergy Verified 07/29/19 11:45 Review of Systems ROS Statement: Those systems with pertinent positive or pertinent negative responses have been documented in the HPI. ROS Other: All systems not noted in ROS Statement are negative. Past Medical History Past Medical History: No Reported History Additional Past Medical History / Comment(s): Obstetric history: This is her first and she has had care with me since 14 weeks. A+, abs neg, Rub Imm, RPR NR, Hep B neg, HIV NR. Normal 1hr GTT, GBS neg. History of Any Multi-Drug Resistant Organisms: None Reported Past Surgical History: Section Past Anesthesia/Blood Transfusion Reactions: No Reported Reaction Past Psychological History: Anxiety, Panic Disorder Smoking Status: Current some day smoker Past Alcohol Use History: Rare Past Drug Use History: Marijuana - Past Family History Father Family Medical History: No Reported History General Exam - General Exam Comments Initial Comments: General: The patient is awake and alert, in no distress Eye: Pupils are equal, round and reactive to light, extra-ocular movements are intact. No nystagmus. There is normal conjunctiva bilaterally. No signs of icterus. D. Cardiovascular: There is a regular rate and rhythm. No murmur, rub or gallop is appreciated. Respiratory: Lungs are clear to auscultation, respirations are non-labored, breath sounds are equal. No wheezes, stridor, rales, or rhonchi. Musculoskeletal: There is some bruising noted along the thenar eminence of the left hand. There is tenderness palpation of the scaphoid. Patient can range the wrist however this is very tender. She will go off of digits of the hand. There is evidence of wristdrop. Capillary refill less than 2 seconds +2 radial pulses equal and comparison bilaterally no decreased strength with sensation intact proximal distal injury site. Neurological: A&O x 3. CN II-XII intact grossly, There are no obvious motor or sensory deficits. Coordination appears grossly intact. Speech is normal. Skin: Skin is warm and dry and no rashes or lesions are noted. Psychiatric: Cooperative, appropriate mood & affect, normal judgment. Limitations: no limitations Course Vital Signs 07/29/19 11:43 Temperature 98.3 F Pulse Rate 78 Respiratory 18 Rate Blood Pressure 102/58 O2 Sat by Pulse 98 Oximetry Medical Decision Making - Medical Decision Making 28yo presenting today for cc of left hand pain. Xr revealed findings concerning for trapezoid fracture, point tenderness over area and appreciated lucency on XR. Concern for fracture, recommend orthopedic f/u in next 2-5 days, thumb spica splint placed. Return parameters discussed and importance of f/u. Patient discharged appearing well. Images and case discussed. Disposition Clinical Impression: Fracture of trapezoid, Hand pain Disposition: HOME SELF-CARE Condition: Good Instructions (If sedation given, give patient instructions): Wrist Fracture in Adults (ED), Suspected Fracture (ED) Additional Instructions: Please use medication as discussed. Please follow-up with orthopedics in the next 1-3 days. Please return to emergency room if the symptoms increase or worsen or for any other concerns. Is patient prescribed a controlled substance at d/c from ED?: No Referrals: None,Stated [Primary Care Provider] - 1-2 days Frank Peoples DO [Medical Doctor] - 1-2 days Time of Disposition: 12:19
== END 2019-07-29 12:46 | disposition home or self-care (01) ==
LOC: EC 11:40
DX: S62.182A Displaced fracture of trapezoid [smaller multangular], left wrist, initial encounter for closed fracture (principal); F17.200 Nicotine dependence, unspecified, uncomplicated; W22.8XXA Striking against or struck by other objects, initial encounter; Y93.89 Activity, other specified
CPT/HCPCS: 29125; 99283

== ENCOUNTER → 2019-08-07 | Outpatient (CLI) | payer OTHER ==
--- NOTE | 2019-08-07 15:02 | CT ---
EXAMINATION TYPE: CT wrist LT wo con DATE OF EXAM: 08/07/2019 COMPARISON: X-ray 07/29/2019 HISTORY: Nondisplaced fracture of trapezoid CT DLP: 95.9 mGycm Automated exposure control for dose reduction was used. FINDINGS: There is a fracture involving the trapezoid compatible with the x-ray finding with mild displacement. Fracture line measures approximately 0.8 mm in thickness. Fracture line extends to the lower interca rpal articular. There is adjacent soft tissue edema. Remaining osseous structures intact. IMPRESSION: MILDLY DISPLACED FRACTURE OF THE TRAPEZOID EXTENDING TO THE LOWER ARTICULAR SURFACE.
== END | disposition home or self-care (01) ==
LOC: RADCTMAIN 14:03
PROVIDERS: ATTEND Orthopaedic Surgery
DX: S62.185A Nondisplaced fracture of trapezoid [smaller multangular], left wrist, initial encounter for closed fracture (principal)

== ENCOUNTER 2022-02-11 15:42 | Emergency (ER) | payer OTHER ==
[2022-02-11] MEDS ORDERED: ONDANSETRON 4 MG/2 ML VIAL IVP STA (16:09)
--- NOTE | 2022-02-11 16:17 | ED ---
General Adult HPI - General Chief complaint: Nausea/Vomiting/Diarrhea Stated complaint: Early ,Vomiting Time Seen by Provider: 02/11/22 15:59 Source: patient, RN notes reviewed Mode of arrival: ambulatory Limitations: no limitations - History of Present Illness Initial comments: 31-year-old female, , LMP unknown, presents to the emergency department for evaluation of left lower quadrant abdominal pain and persistent nausea and vomiting. Patient states she is uncertain of how far along in she is. Has not been able to establish care with OB provider. Reports inability to tolerate most oral intake. Has tried treating nausea with OTC options such as preggie pops and peppermint with no success. States she does not have the energy or ability to care for HER 2 other children at home. States she is dizzy. Reports recent UTI and is unable to tolerate the antibiotic she was prescribed. Denies fever, chills, headache, chest pain, shortness of breath, diarrhea, dysuria, vaginal bleeding/discharge/leaking of fluids. - Related Data Home Medications Medication Instructions Recorded Confirmed Vit No.180/Iron/Folic 1 each PO DAILY 12/29/18 12/29/18 [ Plus Tablet] Previous Rx's Medication Instructions Recorded Yoo-Boui-Wwtjw Acid 1 each PO DAILY #30 cap 02/11/22 [-U Capsule] Allergies Allergy/AdvReac Type Severity Reaction Status Date / Time No Known Allergies Allergy Verified 02/11/22 15:46 Review of Systems ROS Statement: Those systems with pertinent positive or pertinent negative responses have been documented in the HPI. ROS Other: All systems not noted in ROS Statement are negative. Past Medical History Past Medical History: No Reported History Additional Past Medical History / Comment(s): Obstetric history: This is her fi rst and she has had care with me since 14 weeks. A+, abs neg, Rub Imm, RPR NR, Hep B neg, HIV NR. Normal 1hr GTT, GBS neg. History of Any Multi-Drug Resistant Organisms: None Reported Past Surgical History: Section Past Anesthesia/Blood Transfusion Reactions: No Reported Reaction Past Psychological History: Anxiety, Panic Disorder Smoking Status: Never smoker Past Alcohol Use History: Rare Past Drug Use History: Marijuana - Past Family History Father Family Medical History: No Reported History General Exam Limitations: no limitations General appearance: alert, in no apparent distress ENT exam: Present: mucous membranes moist Respiratory exam: Present: normal lung sounds bilaterally. Absent: respiratory distress, wheezes, rales, rhonchi, stridor Cardiovascular Exam: Present: regular rate, normal rhythm, normal heart sounds. Absent: systolic murmur, diastolic murmur, rubs, gallop, clicks GI/Abdominal exam: Present: soft, tenderness (left lower quadrant/groin), normal bowel sounds. Absent: distended, guarding, rebound, rigid Back exam: Absent: CVA tenderness (R), CVA tenderness (L) Neurological exam: Present: alert, oriented X3, normal gait Psychiatric exam: Present: anxious Skin exam: Present: warm, dry, intact, normal color. Absent: rash Course Vital Signs 02/11/22 02/11/22 15:43 19:01 Temperature 98.1 F 97.6 F Pulse Rate 113 H 83 Respiratory 18 16 Rate Blood Pressure 123/76 96/57 O2 Sat by Pulse 100 100 Oximetry - Reevaluation(s) Reevaluation #1: 02/11/22 18:45 Upon reassessment, patient is feeling improved. She is requesting a Zofran starter pack we discussed risks and benefits at length. She verbalizes understanding. Medical Decision Making - Medical Decision Making 31-year-old female, , presents to the emergency department for evaluation of persistent nausea and vomiting in early . Upon exam, patient is anxious, though well-appearing and in no acute distress. She is not actively vomiting at this time. She has no vaginal bleeding or discharge. Complains of mild abdominal cramping and left-sided discomfort with known ovarian cyst. Laboratory studies were obtained. Urinalysis is negative. Patient advised to discontinue antibiotic. IV infusion of D5 normal saline was given with improvement. Patient did receive Zofran after lengthy discussion of risks. Ultrasound was obtained showing IUP measuring 7 weeks 1 day and heart rate 149. Patient will be discharged home to establish care with [facility]. She is prescribed vitamins. Discussed options to manage nausea though patient is unconvinced. Return parameters discussed in detail. Patient verbalizes understanding and agrees with this plan. Attending: Eugene. - Lab Data Result diagrams: 02/11/22 16:38 02/11/22 16:38 Lab Results 02/11/22 02/11/22 02/11/22 Range/Units 16:38 16:38 16:38 WBC 11.5 H (3.8-10.6) k/uL RBC 4.07 (3.80-5.40) m/uL Hgb 12.9 (11.4-16.0) gm/dL Hct 35.0 (34.0-46.0) % MCV 86.0 (80.0-100.0) fL MCH 31.5 (25.0-35.0) pg MCHC 36.7 (31.0-37.0) g/dL RDW 12.0 (11.5-15.5) % Plt Count 271 (150-450) k/uL MPV 7.9 Neutrophils % 70 % Lymphocytes % 22 % Monocytes % 4 % Eosinophils % 2 % Basophils % 0 % Neutrophils # 8.1 H (1.3-7.7) k/uL Lymphocytes # 2.5 (1.0-4.8) k/uL Monocytes # 0.5 (0-1.0) k/uL Eosinophils # 0.3 (0-0.7) k/uL Basophils # 0.1 (0-0.2) k/uL Sodium 139 (137-145) mmol/L Potassium 3.4 L (3.5-5.1) mmol/L Chloride 105 (98-107) mmol/L Carbon Dioxide 25 (22-30) mmol/L Anion Gap 9 mmol/L BUN 8 (7-17) mg/dL Creatinine 0.50 L (0.52-1.04) mg/dL Est GFR (CKD-EPI)AfAm >90 (>60 ml/min/1.73 sqM) Est GFR (CKD-EPI)NonAf >90 (>60 ml/min/1.73 sqM) Glucose 84 (74-99) mg/dL Calcium 9.6 (8.4-10.2) mg/dL Total Bilirubin 0.4 (0.2-1.3) mg/dL AST 23 (14-36) U/L ALT 16 (4-34) U/L Alkaline Phosphatase 44 (38-126) U/L Total Protein 8.1 (6.3-8.2) g/dL Albumin 4.5 (3.5-5.0) g/dL HCG, Quant 637563.0 mIU/mL Urine Color Colorless Urine Appearance Clear (Clear) Urine pH 7.0 (5.0-8.0) Ur Specific [place] 1.003 (1.001-1.035) Urine Protein Negative (Negative) Urine Glucose (UA) Negative (Negative) Urine Ketones 1+ H (Negative) Urine Blood Negative (Negative) Urine Nitrite Negative (Negative) Urine Bilirubin Negative (Negative) Urine Urobilinogen <2.0 (<2.0) mg/dL Ur Leukocyte Esterase Negative (Negative) Urine HCG, Qual (Not Detectd) 02/11/22 Range/Units 16:38 WBC (3.8-10.6) k/uL RBC (3.80-5.40) m/uL Hgb (11.4-16.0) gm/dL Hct (34.0-46.0) % MCV (80.0-100.0) fL MCH (25.0-35.0) pg MCHC (31.0-37.0) g/dL RDW (11.5-15.5) % Plt Count (150-450) k/uL MPV Neutrophils % % Lymphocytes % % Monocytes % % Eosinophils % % Basophils % % Neutrophils # (1.3-7.7) k/uL Lymphocytes # (1.0-4.8) k/uL Monocytes # (0-1.0) k/uL Eosinophils # (0-0.7) k/uL Basophils # (0-0.2) k/uL Sodium (137-145) mmol/L Potassium (3.5-5.1) mmol/L Chloride (98-107) mmol/L Carbon Dioxide (22-30) mmol/L Anion Gap mmol/L BUN (7-17) mg/dL Creatinine (0.52-1.04) mg/dL Est GFR (CKD-EPI)AfAm (>60 ml/min/1.73 sqM) Est GFR (CKD-EPI)NonAf (>60 ml/min/1.73 sqM) Glucose (74-99) mg/dL Calcium (8.4-10.2) mg/dL Total Bilirubin (0.2-1.3) mg/dL AST (14-36) U/L ALT (4-34) U/L Alkaline Phosphatase (38-126) U/L Total Protein (6.3-8.2) g/dL Albumin (3.5-5.0) g/dL HCG, Quant mIU/mL Urine Color Urine Appearance (Clear) Urine pH (5.0-8.0) Ur Specific [place] (1.001-1.035) Urine Protein (Negative) Urine Glucose (UA) (Negative) Urine Ketones (Negative) Urine Blood (Negative) Urine Nitrite (Negative) Urine Bilirubin (Negative) Urine Urobilinogen (<2.0) mg/dL Ur Leukocyte Esterase (Negative) Urine HCG, Qual Detected (Not Detectd) - Radiology Data Radiology results: report reviewed, image reviewed ultrasound was obtained. Report was reviewed in its entirety. Impression per Dr. Babcock as #1. Single live intrauterine . #2. States the current scan for 7 weeksone day. #3. EDC: 09/29/2022. Disposition Clinical Impression: Vomiting during Disposition: HOME SELF-CARE Condition: Stable Instructions (If sedation given, give patient instructions): Nausea and Vomiting in (ED) Additional Instructions: Suggestions for nausea in : Eat small more frequent meals, sip water th roughout the day, peppermint and/or lindsay suckers, Unisom 25mg at bedtime, Vitamin B6 10-25mg three times daily. You are being given a Zofran starter pack to use sparingly. Take vitamin daily. Your ultrasound shows that you are 7 weeks 1 day. heart rate 149bpm. Establish with OB for further evaluation and treatment. Return to the emergency department with any new, worsening, or concerning symptoms. Prescriptions: Kgr-Sqms-Bcucz Acid [-U Capsule] 1 each PO DAILY #30 cap Is patient prescribed a controlled substance at d/c from ED?: No Referrals: Nonstaff,Physician [Primary Care Provider] - 1-2 days Marifer Irby MD [STAFF PHYSICIAN] - 1-2 days Time of Disposition: 18:56
[2022-02-11 16:52] LABS: Basophils # (A) 0.1 k/uL (0-0.2); Basophils % (A) 0 %; Eosinophils # (A) 0.3 k/uL (0-0.7); Eosinophils % (A) 2 %; HGB 12.9 gm/dL (11.4-16.0); Lymphocytes # (A) 2.5 k/uL (1.0-4.8); Lymphocytes % (A) 22 %; MCH 31.5 pg (25.0-35.0); MCHC 36.7 g/dL (31.0-37.0); Mean Platelet Volume 7.9; Monocytes # (A) 0.5 k/uL (0-1.0); Monocytes % (A) 4 %; Neutrophils # (A) 8.1 k/uL (1.3-7.7); Neutrophils % (A) 70 %; Platelet Count 271 k/uL (150-450); RBC 4.07 m/uL (3.80-5.40); WBC 11.5 k/uL (3.8-10.6)
[2022-02-11 17:00] LABS: ALT 16 U/L (4-34); AST 23 U/L (14-36); African American GFR (CKD) >90 (>60 ml/min/1.73 sqM); Albumin 4.5 g/dL (3.5-5.0); Alkaline Phosphatase 44 U/L (38-126); Anion Gap 9 mmol/L; Blood Urea Nitrogen 8 mg/dL (7-17); Calcium 9.6 mg/dL (8.4-10.2); Carbon Dioxide 25 mmol/L (22-30); Chloride 105 mmol/L (98-107); Glucose 84 mg/dL (74-99); Non-African American GFR(CKD) >90 (>60 ml/min/1.73 sqM); Potassium 3.4 mmol/L (3.5-5.1); Sodium 139 mmol/L (137-145); Total Bilirubin 0.4 mg/dL (0.2-1.3); Total Protein 8.1 g/dL (6.3-8.2)
[2022-02-11] MEDS ORDERED: DEXTROSE 5%-0.9% NACL 1,000 ML IV SCH (17:00)
[2022-02-11 17:10] LABS: Appearance,Urine Clear (Clear); Bilirubin,Urine Negative (Negative); Blood,Urine Negative (Negative); Color,Urine Colorless; Glucose,Urine (UA) Negative (Negative); Ketones,Urine 1+ (Negative); Leukocyte Esterase,Urine Negative (Negative); Nitrite,Urine Negative (Negative); Protein,Urine Negative (Negative); Specific Gravity,Urine 1.003 (1.001-1.035); Urobilinogen,Urine <2.0 mg/dL (<2.0)
--- NOTE | 2022-02-11 17:40 | US ---
EXAMINATION TYPE: Transabdominal DATE OF EXAM: 02/11/2022 5:14 PM COMPARISON: NONE CLINICAL HISTORY: left lower abdominal pain, LMP unknown, +preg test. LLQ pain, EXAM PERFORMED: OBTA EXAM MEASUREMENTS: GESTATIONAL AGE / DATING Physician Established: Not yet established Dates by LMP: LMP unknown Dates by First Scan: No previous this is first scan Dates by Current Scan for: (7 weeks/ 1 days) EDC: 09/29/2022 MATERNAL ANATOMY Uterus: 9.7 x 7.4 x 6.2cm Right Ovary: 1.9 x 1.4 x 1.2cm Left Ovary: 3.6 x 3.0 x 3.0cm Post CDS / Adnexa: wnl Presence of free fluid: no Presence of corpus luteal cyst: yes, left ov = 2.4 x 2.6 x 2.8cm Presence of subchorionic bleed: no GESTATION / SURVEY CRL: 1.0cm (7 weeks/1 days) MSD: wnl Yolk Sac (normal less than 6mm): 0.4cm Heart Rate: 149 bpm Rhythm: Normal IUP: Viable IUP Date of LMP: unknown Beta HcG (if available): pending IMPRESSION: 1. Single live intrauterine 2. Dates by Current Scan for: (7 weeks/ 1 days) 3. EDC: 09/29/2022
[2022-02-11] MEDS ORDERED: ONDANSETRON 4 MG ODT STARTER PACK 2 TAB BTL PO STA (18:56)
[2022-02-11 19:10] VITALS: BP 96/57; PULSE 83; RESP 16; TEMP 97.6
== END 2022-02-11 19:12 | disposition home or self-care (01) ==
LOC: EC 15:42
DX: O21.9 Vomiting of pregnancy, unspecified (principal); O99.341 Other mental disorders complicating pregnancy, first trimester; F41.9 Anxiety disorder, unspecified; O99.321 Drug use complicating pregnancy, first trimester; F12.90 Cannabis use, unspecified, uncomplicated; Z32.01 Encounter for pregnancy test, result positive
CPT/HCPCS: 36415; 80053; 85025; 81003; 81025; 84702; 76801; 99284; 96374; 96361 ×2; J2405; S0119

== ENCOUNTER 2022-02-15 07:19 | Emergency (ER) | payer OTHER ==
[2022-02-15] MEDS ORDERED: SODIUM CHLORIDE 0.9% 2,000 ML IV STA (07:39)
[2022-02-15] MEDS ORDERED: FAMOTIDINE 20 MG/2 ML VIAL IV STA (07:39)
[2022-02-15] MEDS ORDERED: ONDANSETRON 4 MG/2 ML VIAL IVP STA ×2 (07:39→09:16)
--- NOTE | 2022-02-15 07:42 | ED ---
General Adult HPI - General Chief complaint: Nausea/Vomiting/Diarrhea Stated complaint: Vomiting Time Seen by Provider: 02/15/22 07:31 Source: patient, RN notes reviewed Mode of arrival: ambulatory Limitations: no limitations - History of Present Illness Initial comments: Patient is a pleasant 31-year-old female presenting to the emergency department with concerns of vomiting. Patient has been vomiting over several weeks. Symptoms are a little bit worse today. Patient states she frequently urinates when she vomits and therefore was sitting on the toilet. Patient had a questionable syncopal episode of vomiting. Patient did fall towards the ground however no injury. No head injury. Patient denies any pelvic pain or vaginal bleeding. Patient has mild umbilical discomfort from a hernia which is chronic and unchanged. Patient was here within the past week or so and diagnosed with . - Related Data Home Medications Medication Instructions Recorded Confirmed Vit No.180/Iron/Folic 1 each PO DAILY 12/29/18 12/29/18 [ Plus Tablet] Previous Rx's Medication Instructions Recorded Hzy-Pqsp-Bytph Acid 1 each PO DAILY #30 cap 02/11/22 [-U Capsule] Ondansetron Odt [Zofran Odt] 4 mg PO Q8HR PRN #10 tab 02/15/22 Allergies Allergy/AdvReac Type Severity Reaction Status Date / Time No Known Allergies Allergy Verified 02/15/22 07:27 Review of Systems ROS Statement: Those systems with pertinent positive or pertinent negative responses have been documented in the HPI. ROS Other: All systems not noted in ROS Statement are negative. Constitutional: Denies: fever Eyes: Denies: eye pain ENT: Denies: ear pain Respiratory: Denies: cough Cardiovascular: Denies: chest pain Endocrine: Denies: fatigue Gastrointestinal: Reports: as per HPI, nausea, vomiting Genitourinary: Reports: as per HPI. Denies: dysuria Musculoskeletal: Denies: back pain Skin: Denies: rash Neurological: Denies: weakness Past Medical History Past Medical History: No Reported History Additional Past Medical History / Comment(s): Obstetric history: This is her first and she has had care with me since 14 weeks. A+, abs neg, Rub Imm, RPR NR, Hep B neg, HIV NR. Normal 1hr GTT, GBS neg. History of Any Multi-Drug Resistant Organisms: None Reported Past Surgical History: Section Past Anesthesia/Blood Transfusion Reactions: No Reported Reaction Past Psychological History: Anxiety, Panic Disorder Smoking Status: Never smoker Past Alcohol Use History: Rare Past Drug Use History: Marijuana - Past Family History Father Family Medical History: No Reported History General Exam Limitations: no limitations General appearance: alert, in no apparent distress Head exam: Present: normocephalic Eye exam: Present: normal appearance Neck exam: Present: normal inspection Respiratory exam: Present: normal lung sounds bilaterally Cardiovascular Exam: Present: regular rate, normal rhythm GI/Abdominal exam: Present: soft, normal bowel sounds, hernia (Small umbilical hernia that is reducible with mild tenderness.). Absent: distended, guarding, rebound, rigid, pulsatile mass Extremities exam: Present: normal inspection Neurological exam: Present: alert Psychiatric exam: Present: normal affect, normal mood Skin exam: Present: normal color Course Vital Signs 02/15/22 07:28 Temperature 98.3 F Pulse Rate 82 Respiratory 16 Rate Blood Pressure 118/81 O2 Sat by Pulse 97 Oximetry EKG Findings - EKG Results: EKG: interpreted by ERMD, sinus rhythm, normal axis, normal QRS, normal ST/T Medical Decision Making - Medical Decision Making Patient reevaluated and states she is starting to feel a little bit better. Patient still has some nausea and is receptive to repeat medication. Patient updated on results and need for follow-up. Patient states she does have an appointment to follow up with [facility]. Patient does request prescription. - Lab Data Result diagrams: 02/15/22 07:42 02/15/22 07:42 Lab Results 02/15/22 02/15/22 02/15/22 Range/Units 07:42 07:42 07:42 WBC 9.3 (3.8-10.6) k/uL RBC 3.98 (3.80-5.40) m/uL Hgb 12.1 (11.4-16.0) gm/dL Hct 34.5 (34.0-46.0) % MCV 86.7 (80.0-100.0) fL MCH 30.5 (25.0-35.0) pg MCHC 35.1 (31.0-37.0) g/dL RDW 12.1 (11.5-15.5) % Plt Count 256 (150-450) k/uL MPV 7.6 Neutrophils % 67 % Lymphocytes % 23 % Monocytes % 5 % Eosinophils % 3 % Basophils % 0 % Neutrophils # 6.2 (1.3-7.7) k/uL Lymphocytes # 2.1 (1.0-4.8) k/uL Monocytes # 0.4 (0-1.0) k/uL Eosinophils # 0.3 (0-0.7) k/uL Basophils # 0.0 (0-0.2) k/uL PT 10.1 (9.0-12.0) sec INR 1.0 (<1.2) APTT 24.2 (22.0-30.0) sec Sodium 137 (137-145) mmol/L Potassium 3.8 (3.5-5.1) mmol/L Chloride 107 (98-107) mmol/L Carbon Dioxide 22 (22-30) mmol/L Anion Gap 8 mmol/L BUN 12 (7-17) mg/dL Creatinine 0.48 L (0.52-1.04) mg/dL Est GFR (CKD-EPI)AfAm >90 (>60 ml/min/1.73 sqM) Est GFR (CKD-EPI)NonAf >90 (>60 ml/min/1.73 sqM) Glucose 82 (74-99) mg/dL Calcium 8.9 (8.4-10.2) mg/dL Total Bilirubin 0.4 (0.2-1.3) mg/dL AST 21 (14-36) U/L ALT 14 (4-34) U/L Alkaline Phosphatase 37 L (38-126) U/L Total Protein 7.2 (6.3-8.2) g/dL Albumin 4.1 (3.5-5.0) g/dL Amylase 55 (30-110) U/L Lipase 62 (23-300) U/L Blood Type Blood Type Recheck Bld Type Recheck Status 02/15/22 Range/Units 08:00 WBC (3.8-10.6) k/uL RBC (3.80-5.40) m/uL Hgb (11.4-16.0) gm/dL Hct (34.0-46.0) % MCV (80.0-100.0) fL MCH (25.0-35.0) pg MCHC (31.0-37.0) g/dL RDW (11.5-15.5) % Plt Count (150-450) k/uL MPV Neutrophils % % Lymphocytes % % Monocytes % % Eosinophils % % Basophils % % Neutrophils # (1.3-7.7) k/uL Lymphocytes # (1.0-4.8) k/uL Monocytes # (0-1.0) k/uL Eosinophils # (0-0.7) k/uL Basophils # (0-0.2) k/uL PT (9.0-12.0) sec INR (<1.2) APTT (22.0-30.0) sec Sodium (137-145) mmol/L Potassium (3.5-5.1) mmol/L Chloride (98-107) mmol/L Carbon Dioxide (22-30) mmol/L Anion Gap mmol/L BUN (7-17) mg/dL Creatinine (0.52-1.04) mg/dL Est GFR (CKD-EPI)AfAm (>60 ml/min/1.73 sqM) Est GFR (CKD-EPI)NonAf (>60 ml/min/1.73 sqM) Glucose (74-99) mg/dL Calcium (8.4-10.2) mg/dL Total Bilirubin (0.2-1.3) mg/dL AST (14-36) U/L ALT (4-34) U/L Alkaline Phosphatase (38-126) U/L Total Protein (6.3-8.2) g/dL Albumin (3.5-5.0) g/dL Amylase (30-110) U/L Lipase (23-300) U/L Blood Type A Positive Blood Type Recheck A Pos Bld Type Recheck Status No - Radiology Data Radiology results: report reviewed (Pelvic ultrasound shows single IUP 8week 1 day) Disposition Clinical Impression: Hyperemesis gravidarum Disposition: HOME SELF-CARE Condition: Stable Instructions (If sedation given, give patient instructions): Hyperemesis Gravidarum (ED) Additional Instructions: Please do follow-up with primary care physician and [facility] in the next couple days for recheck. Prescription has been sent to pharmacy. Return for pelvic pain, bleeding, uncontrolled vomiting, not tolerating oral intake, worsening symptoms or other concerns. Prescriptions: Ondansetron Odt [Zofran Odt] 4 mg PO Q8HR PRN #10 tab PRN Reason: Nausea Is patient prescribed a controlled substance at d/c from ED?: No Referrals: Selma Tang MD [STAFF PHYSICIAN] - 1-2 days Jolly Almanzar MD [STAFF PHYSICIAN] - 1-2 days Time of Disposition: 09:18
[2022-02-15 08:13] LABS: Basophils % (A) 0 %; Eosinophils # (A) 0.3 k/uL (0-0.7); Eosinophils % (A) 3 %; HCT 34.5 % (34.0-46.0); HGB 12.1 gm/dL (11.4-16.0); Lymphocytes # (A) 2.1 k/uL (1.0-4.8); Lymphocytes % (A) 23 %; MCH 30.5 pg (25.0-35.0); MCHC 35.1 g/dL (31.0-37.0); MCV 86.7 fL (80.0-100.0); Mean Platelet Volume 7.6; Monocytes # (A) 0.4 k/uL (0-1.0); Monocytes % (A) 5 %; Neutrophils # (A) 6.2 k/uL (1.3-7.7); Neutrophils % (A) 67 %; Platelet Count 256 k/uL (150-450); RBC 3.98 m/uL (3.80-5.40); RDW 12.1 % (11.5-15.5); WBC 9.3 k/uL (3.8-10.6)
[2022-02-15 08:27] LABS: Partial Thromboplastin Time 24.2 sec (22.0-30.0); Prothrombin Time 10.1 sec (9.0-12.0)
[2022-02-15 08:29] LABS: ALT 14 U/L (4-34); AST 21 U/L (14-36); African American GFR (CKD) >90 (>60 ml/min/1.73 sqM); Albumin 4.1 g/dL (3.5-5.0); Alkaline Phosphatase 37 U/L (38-126); Amylase 55 U/L (30-110); Anion Gap 8 mmol/L; Blood Urea Nitrogen 12 mg/dL (7-17); Calcium 8.9 mg/dL (8.4-10.2); Carbon Dioxide 22 mmol/L (22-30); Chloride 107 mmol/L (98-107); Glucose 82 mg/dL (74-99); Lipase 62 U/L (23-300); Non-African American GFR(CKD) >90 (>60 ml/min/1.73 sqM); Potassium 3.8 mmol/L (3.5-5.1); Sodium 137 mmol/L (137-145); Total Bilirubin 0.4 mg/dL (0.2-1.3); Total Protein 7.2 g/dL (6.3-8.2)
--- NOTE | 2022-02-15 09:07 | US ---
EXAMINATION TYPE: Transabdominal DATE OF EXAM: 02/15/2022 8:56 AM COMPARISON: 02/11/2022 CLINICAL HISTORY: Syncope. Vomiting EXAM PERFORMED: Transabdominal (TA) EXAM MEASUREMENTS: GESTATIONAL AGE / DATING Physician Established: Not yet established Dates by LMP: (7 weeks/4 days) EDC: 09/30/2022 Dates by First Scan: (7 weeks/1 days) EDC: 09/29/2022 Dates by Current Scan for: (8 weeks/1 days) EDC: 09/26/2022 MATERNAL ANATOMY Uterus: wnl Right Ovary: wnl Left Ovary: 2.7 x 2.6 x 2.5cm anechoic cyst Post CDS / Adnexa: wnl Presence of free fluid: No Presence of corpus luteal cyst: Yes Presence of subchorionic bleed: No GESTATION / SURVEY CRL: 1.69cm (8 weeks/1 days) MSD: wnl Yolk Sac (normal less than 6mm): 5.3mm Heart Rate: 174 bpm Rhythm: Normal IUP: Viable IUP Date of LMP: 12/24/2021 Beta HcG (if available): Unavailable IMPRESSION: Single viable intrauterine . Left ovarian corpus luteal cyst noted.
[2022-02-15 09:23] VITALS: RESP 18
[2022-02-15 09:53] VITALS: BP 122/71; PULSE 71; TEMP 98.1
[2022-02-15 10:26] LABS: HCG,Quantitative Serum >225000.0 mIU/mL
== END 2022-02-15 09:53 | disposition home or self-care (01) ==
LOC: EC 07:19
DX: O21.1 Hyperemesis gravidarum with metabolic disturbance (principal); F41.9 Anxiety disorder, unspecified; F12.90 Cannabis use, unspecified, uncomplicated; Z3A.08 8 weeks gestation of pregnancy
CPT/HCPCS: 36415; 93005; 86900; 86901; 80053; 82150; 83690; 85025; 85610; 85730; 84702; 76801; 99284; 96374; 96376 ×2; 96361 ×2; J2405

== ENCOUNTER 2023-09-21 19:12 | Emergency (ER) | payer OTHER ==
[2023-09-21] MEDS: MORPHINE SULFATE 4 MG/ML SYRINGE IVP STA (20:36)
[2023-09-21] MEDS: ONDANSETRON 4 MG/2 ML VIAL IVP STA (20:36)
[2023-09-21] MEDS: SODIUM CHLORIDE 0.9% 1,000 ML IV STA (20:36)
[2023-09-21 20:54] LABS: Basophils % (A) 0 %; Eosinophils # (A) 0.2 k/uL (0-0.7); Eosinophils % (A) 2 %; HCT 37.4 % (34.0-46.0); HGB 12.4 gm/dL (11.4-16.0); Lymphocytes # (A) 1.8 k/uL (1.0-4.8); Lymphocytes % (A) 13 %; MCH 29.4 pg (25.0-35.0); MCHC 33.2 g/dL (31.0-37.0); MCV 88.6 fL (80.0-100.0); Mean Platelet Volume 7.2; Monocytes # (A) 0.6 k/uL (0-1.0); Monocytes % (A) 5 %; Neutrophils # (A) 11.2 k/uL (1.3-7.7); Neutrophils % (A) 80 %; Platelet Count 326 k/uL (150-450); RBC 4.22 m/uL (3.80-5.40); RDW 13.9 % (11.5-15.5)
[2023-09-21 21:13] LABS: Appearance,Urine Cloudy (Clear); Bacteria,Urine Occasional /hpf; Bilirubin,Urine Negative (Negative); Blood,Urine Negative (Negative); Color,Urine Colorless; Glucose,Urine (UA) Negative (Negative); Ketones,Urine Negative (Negative); Leukocyte Esterase,Urine Moderate (Negative); Mucus,Urine Rare /hpf; Nitrite,Urine Positive (Negative); PH, Urine 5.5 (5.0-8.0); Protein,Urine Trace (Negative); RBC,Urine 4 /hpf (0-5); Specific Gravity,Urine 1.013 (1.001-1.035); Squamous Epithelial Cell,Urine 7 /hpf (0-4); Urobilinogen,Urine <2.0 mg/dL (<2.0); WBC,Urine 74 /hpf (0-5)
[2023-09-21 21:14] LABS: ALT 13 U/L (4-34); AST 23 U/L (14-36); African American GFR (CKD) >90 (>60 ml/min/1.73 sqM); Albumin 4.6 g/dL (3.5-5.0); Alkaline Phosphatase 54 U/L (38-126); Amylase 43 U/L (30-110); Anion Gap 11 mmol/L; Blood Urea Nitrogen 16 mg/dL (7-17); Carbon Dioxide 24 mmol/L (22-30); Chloride 103 mmol/L (98-107); Glucose 87 mg/dL (74-99); Lipase 58 U/L (23-300); Non-African American GFR(CKD) >90 (>60 ml/min/1.73 sqM); Sodium 138 mmol/L (137-145); Total Bilirubin 0.4 mg/dL (0.2-1.3); Total Protein 7.9 g/dL (6.3-8.2)
--- NOTE | 2023-09-21 21:16 | US ---
EXAMINATION TYPE: US abdomen limited DATE OF EXAM: 09/21/2023 COMPARISON: NONE CLINICAL INDICATION: Female, 33 years old with history of pain, R sided; Hernia surgery 08/01/2023, ? Bowel obstruction post surgery; right upper quadrant and right lower quadrant abdominal pain x few ho urs w/ nausea TECHNIQUE: Multiple sonographic images of the right upper quadrant are obtained. FINDINGS: EXAM MEASUREMENTS: Liver Length: 17.4 cm Gallbladder Wall: NA - gallbladder is not distended CBD: 0.3 cm Right Kidney: 11.1 x 4.4 x 4.7 cm MUCKER COFFERDAM NOTES: Pancreas: wnl Liver: wnl Gallbladder: Not distended Evidence for sonographic Garcia's sign: ? - Patient not able to tolerate exam well CBD: wnl Right Kidney: wnl IMPRESSION: No acute process is appreciated.
--- NOTE | 2023-09-21 21:21 | US ---
EXAMINATION TYPE: Transabdominal DATE OF EXAM: 09/21/2023 8:58 PM COMPARISON: None for this ; Multiple from prior pregnancies CLINICAL INDICATION: Female, 33 years old with history of pain, R sided x few hours with nausea and v omiting. EXAM PERFORMED: Transvaginal (TV) and Transabdominal (TA) EXAM MEASUREMENTS: GESTATIONAL AGE / DATING Physician Established: Not yet established ( weeks/ days) EDC: Dates by LMP: LMP unknown ( weeks/ days) EDC: Dates by First Scan: No previous this is first scan ( weeks/ days) EDC: Dates by Current Scan for: (6 weeks/0 days) EDC: 05/16/2024 MATERNAL ANATOMY Uterus: 10.2 x 4.6 x 6.6 cm Right Ovary: 2.2 x 2.1 x 1.9 cm Left Ovary: 2.7 x 1.8 x 2.3 Post CDS / Adnexa: Dilated tubular structures left adnexa Presence of free fluid: No Presence of corpus luteal cyst: ? Right ovary vs hemorrhagic cyst Presence of subchorionic bleed: No GESTATION / SURVEY CRL: 0.27 (5 weeks/6 days) MSD: 1.24 (6 weeks/0 days) Yolk Sac (normal less than 6mm): 2.6 mm. Heart Rate: Not able to obtain - too early Rhythm: Not able to assess due to gestational age IUP: Not able to assess viability at this time Age Appropriate Anatomy Cord Insertion: NA Limbs: NA Calvarium: NA Date of LMP: Unknown Beta HcG (if available): "Detected" per EMR IMPRESSION: 1. Intrauterine gestational sac measuring 6 weeks, 0 days by sac diameter. Yolk sac measuring 2.6 mm identified. No pole or heart detected yet
[2023-09-21 21:29] LABS: HCG,Quantitative Serum 12017.3 mIU/mL
[2023-09-21] MEDS: HYDROmorphone 1 MG/ML 1 ML SYRINGE IVP STA (22:02)
[2023-09-21] MEDS: cefTRIAXone IN SWFI 1,000 MG/10 ML SYRINGE IVP STA (22:03)
[2023-09-22] MEDS: HYDROmorphone 1 MG/ML 1 ML SYRINGE IVP STA (00:23)
[2023-09-22] MEDS: METOCLOPRAMIDE 5 MG/ML 2 ML VIAL IVP STA (00:23)
[2023-09-22] MEDS: SODIUM CHLORIDE 0.9% 1,000 ML IV ONE (00:33)
--- NOTE | 2023-09-22 01:23 | ED ---
Abdominal Pain HPI - General Chief Complaint: Abdominal Pain Stated Complaint: Abd pain, possibly 6-8 weeks Time Seen by Provider: 09/21/23 19:39 Source: patient Mode of arrival: wheelchair Limitations: no limitations - History of Present Illness Initial Comments: 33-year-old female presenting with chief complaint of abdominal pain. Patient is having pain in the lower abdomen, more so on the right side. She is having some radiation of pain to the back. Patient had ventral hernia repair on 08/01/2023 at [facility]. States that she has been dealing with constipation ever since. She also admits to nausea, no vomiting. She did have a recent positive at-home test. States that she had a recent abdominal CT because she was experiencing abdominal pain after her surgery, more so on the left side, was deemed to be due to constipation. No fever. No difficulty breathing. No dysuria or hematuria. No vaginal bleeding or abnormal discharge. - Related Data Home Medications Medication Instructions Recorded Confirmed Vit No.180/Iron/Folic 1 each PO DAILY 12/29/18 12/29/18 [ Plus Tablet] Previous Rx's Medication Instructions Recorded Kqu-[id number] Acid 1 each PO DAILY #30 cap 02/11/22 [-U Capsule] Ondansetron Odt [Zofran Odt] 4 mg PO Q8HR PRN #10 tab 02/15/22 Cephalexin [Keflex] 500 mg PO Q12HR 14 Days #28 cap 09/22/23 Ondansetron Odt [Zofran Odt] 4 mg PO Q8HR PRN #20 tab 09/22/23 Vit No.179/Iron/Folic 1 each PO DAILY #30 tab 09/22/23 [ Tablet] Allergies Allergy/AdvReac Type Severity Reaction Status Date / Time No Known Allergies Allergy Verified 09/21/23 19:24 Review of Systems ROS Statement: Those systems with pertinent positive or pertinent negative responses have been documented in the HPI. ROS Other: All systems not noted in ROS Statement are negative. Past Medical History Past Medical History: No Reported History Additional Past Medical History / Comment(s): Obstetric history: This is her first and she has had care with me since 14 weeks. A+, abs neg, Rub Imm, RPR NR, Hep B neg, HIV NR. Normal 1hr GTT, GBS neg. hernia surgery History of Any Multi-Drug Resistant Organisms: None Reported Past Surgical History: Section Past Anesthesia/Blood Transfusion Reactions: No Reported Reaction Past Psychological History: Anxiety, Panic Disorder Smoking Status: Never smoker Past Alcohol Use History: Rare Past Drug Use History: Marijuana - Past Family History Father Family Medical History: No Reported History General Exam Limitations: no limitations General appearance: alert, in no apparent distress Head exam: Present: atraumatic, normocephalic Eye exam: Present: normal appearance, EOMI Neck exam: Present: normal inspection. Absent: meningismus Respiratory exam: Present: normal lung sounds bilaterally. Absent: respiratory distress, wheezes, rales, rhonchi, stridor Cardiovascular Exam: Present: regular rate, normal rhythm, normal heart sounds. Absent: systolic murmur, diastolic murmur, rubs, gallop, clicks GI/Abdominal exam: Present: soft, tenderness (nonlocalized). Absent: distended, guarding, rebound, rigid Extremities exam: Present: normal inspection Neurological exam: Present: alert, oriented X3 Psychiatric exam: Present: normal affect, normal mood Skin exam: Present: warm, dry Course Vital Signs 09/21/23 09/21/23 09/22/23 19:21 22:00 00:21 Temperature 97.9 F 98.0 F Pulse Rate 100 81 91 Respiratory 20 18 20 Rate Blood Pressure 108/68 120/66 97/76 O2 Sat by Pulse 100 100 100 Oximetry 09/22/23 01:39 Temperature 98.2 F Pulse Rate 87 Respiratory 18 Rate Blood Pressure 106/62 O2 Sat by Pulse 98 Oximetry Medical Decision Making - Medical Decision Making Was pt. sent in by a medical professional or institution (, PA, [facility], urgent care, hospital, or retirement...) When possible be specific @ -No Did you speak to anyone other than the patient for history (EMS, parent, family, police, friend...)? What history was obtained from this source @ -No Did you review nursing and triage notes (agree or disagree)? Why? @ -I reviewed and agree with nursing and triage notes Were old charts reviewed (outside hosp., previous admission, EMS record, old EKG, old radiological studies, urgent care reports/EKG's, retirement records)? Report findings @ -No old charts were reviewed Differential Diagnosis (chest pain, altered mental status, abdominal pain women, abdominal pain men, vaginal bleeding, weakness, fever, dyspnea, syncope, headache, dizziness, GI bleed, back pain, seizure, CVA, palpatations, mental health, musculoskeletal)? @ -MDM Differential Abdominal Pain Women: Appendicitis, Cholecystitis, diverticulosis, ischemic bowel, pancreatitis, hepatitis, UTI, gastroenteritis, AAA, incarcerated hernia, bowel obstruction, constipation, inflammatory bowel, hepatitis, peptic ulcer disease, splenic infarction, perforated viscus, vulvitis, ovarian torsion, PID, kidney stone, placenta abruption... This is not meant to be an all-inclusive list EKG interpreted by me (3pts min.). @ -As above X-rays interpreted by me (1pt min.). @ -None done CT interpreted by me (1pt min.). @ -None done U/S interpreted by me (1pt. min.). @ -Ultrasound shows intrauterine gestational sac measuring 6 weeks 0 days by sac diameter. Yolk sac measuring 2.6 mm identified. No pole or heart detected yet Abdominal ultrasound shows no acute process What testing was considered but not performed or refused? (CT, X-rays, U/S, labs)? Why? @CT was considered, however given that the patient is , we do have an infection source for UTI given her urine, and her CRP is less than 2.5 I do not believe that the benefit would outweigh the risks of CT and labs patient What meds were considered but not given or refused? Why? @ -None Did you discuss the management of the patient with other professionals (professionals i.e. , PA, FI[employer]ER, lab, RT, psych nurse, social professionals, french weaver, teacher, staff antisubmarine officer, director of casework services)? Give summary @ -No Was smoking cessation discussed for >3mins.? @ -No Was critical care preformed (if so, how long)? @ -No Were there social determinants of health that impacted care today? How? (Homelessness, low income, unemployed, alcoholism, drug addiction, transportation, low edu. Level, literacy, decrease access to med. care, [facility], rehab)? @ -No Was there de-escalation of care discussed even if they declined (Discuss DNR or withdrawal of care, Hospice)? DNR status @ -No What co-morbidities impacted this encounter? (DM, HTN, Smoking, COPD, CAD, Cancer, CVA, ARF, Chemo, Hep., AIDS, mental health diagnosis, sleep apnea, morbid obesity)? @ - Was patient admitted / discharged? Hospital course, mention meds given and route, prescriptions, significant lab abnormalities, going to OR and other pert inent info. @ -33-year-old female presenting with chief complaint of abdominal pain. Positive at home test. History and physical exam are conducted. WBC 14.0, likely secondary to . hCG 12,017.3. Ultrasound shows positive IUP, no heart tones detected yet. Urine is positive for UTI with positive nitrites and moderate leukocytes. Patient was given pain and nausea medication as well as Rocephin for her UTI and IV fluids. CRP was obtained to assess the likelihood of appendicitis, CRP 1.9. Low risk for appendicitis given that the CRP does not exceed 2.5. Patient is hemodynamically stable will be treated for UTI with Keflex. Instructed to follow-up with [facility] educated on return parameters. Discharged. Follow-up with PCP. Report back to ER with any new or worsening symptoms. Discussed return parameters and answered all questions. Patient conveyed verbal understanding and agreed to the plan. I discussed this case in detail with my attending Dr. Dominguez Undiagnosed new problem with uncertain prognosis? @ -No Drug Therapy requiring intensive monitoring for toxicity (Heparin, Nitro, Insulin, Cardizem)? @ -No Were any procedures done? @ -No Diagnosis/symptom? @ -UTI in Acute, or Chronic, or Acute on Chronic? @ -Acute Uncomplicated (without systemic symptoms) or Complicated (systemic symptoms)? @ -Uncomplicated Side effects of treatment? @ -No Exacerbation, Progression, or Severe Exacerbation? @ -No Poses a threat to life or bodily function? How? (Chest pain, [place], [place], pneumonia, PE, COPD, DKA, ARF, appy, cholecystitis, CVA, Diverticulitis, Homicidal, Suicidal, threat to staff... and all critical care pts) @ -Low likelihood - Lab Data Result diagrams: 09/21/23 20:29 09/21/23 20:29 Lab Results 09/21/23 09/21/23 09/21/23 Range/Units 20:29 20:29 20:29 WBC 14.0 H (3.8-10.6) k/uL RBC 4.22 (3.80-5.40) m/uL Hgb 12.4 (11.4-16.0) gm/dL Hct 37.4 (34.0-46.0) % MCV 88.6 (80.0-100.0) fL MCH 29.4 (25.0-35.0) pg MCHC 33.2 (31.0-37.0) g/dL RDW 13.9 (11.5-15.5) % Plt Count 326 (150-450) k/uL MPV 7.2 Neutrophils % 80 % Lymphocytes % 13 % Monocytes % 5 % Eosinophils % 2 % Basophils % 0 % Neutrophils # 11.2 H (1.3-7.7) k/uL Lymphocytes # 1.8 (1.0-4.8) k/uL Monocytes # 0.6 (0-1.0) k/uL Eosinophils # 0.2 (0-0.7) k/uL Basophils # 0.0 (0-0.2) k/uL Sodium (137-145) mmol/L Potassium (3.5-5.1) mmol/L Chloride (98-107) mmol/L Carbon Dioxide (22-30) mmol/L Anion Gap mmol/L BUN (7-17) mg/dL Creatinine (0.52-1.04) mg/dL Est GFR (CKD-EPI)AfAm (>60 ml/min/1.73 sqM) Est GFR (CKD-EPI)NonAf (>60 ml/min/1.73 sqM) Glucose (74-99) mg/dL Plasma Lactic Acid Daniel (0.7-2.0) mmol/L Calcium (8.4-10.2) mg/dL Total Bilirubin (0.2-1.3) mg/dL AST (14-36) U/L ALT (4-34) U/L Alkaline Phosphatase (38-126) U/L C-Reactive Protein (<1.0) mg/dL Total Protein (6.3-8.2) g/dL Albumin (3.5-5.0) g/dL Amylase (30-110) U/L Lipase (23-300) U/L HCG, Quant mIU/mL Urine Color Colorless Urine Appearance Cloudy H (Clear) Urine pH 5.5 (5.0-8.0) Ur Specific [place] 1.013 (1.001-1.035) Urine Protein Trace H (Negative) Urine Glucose (UA) Negative (Negative) Urine Ketones Negative (Negative) Urine Blood Negative (Negative) Urine Nitrite Positive H (Negative) Urine Bilirubin Negative (Negative) Urine Urobilinogen <2.0 (<2.0) mg/dL Ur Leukocyte Esterase Moderate H (Negative) Urine RBC 4 (0-5) /hpf Urine WBC 74 H (0-5) /hpf Ur Squamous Epith Cells 7 H (0-4) /hpf Urine Bacteria Occasional H (None) /hpf Urine Mucus Rare H (None) /hpf Urine HCG, Qual Detected (Not Detectd) 09/21/23 09/21/23 09/21/23 Range/Units 20:29 20:29 20:29 WBC (3.8-10.6) k/uL RBC (3.80-5.40) m/uL Hgb (11.4-16.0) gm/dL Hct (34.0-46.0) % MCV (80.0-100.0) fL MCH (25.0-35.0) pg MCHC (31.0-37.0) g/dL RDW (11.5-15.5) % Plt Count (150-450) k/uL MPV Neutrophils % % Lymphocytes % % Monocytes % % Eosinophils % % Basophils % % Neutrophils # (1.3-7.7) k/uL Lymphocytes # (1.0-4.8) k/uL Monocytes # (0-1.0) k/uL Eosinophils # (0-0.7) k/uL Basophils # (0-0.2) k/uL Sodium 138 (137-145) mmol/L Potassium 4.0 (3.5-5.1) mmol/L Chloride 103 (98-107) mmol/L Carbon Dioxide 24 (22-30) mmol/L Anion Gap 11 mmol/L BUN 16 (7-17) mg/dL Creatinine 0.66 (0.52-1.04) mg/dL Est GFR (CKD-EPI)AfAm >90 (>60 ml/min/1.73 sqM) Est GFR (CKD-EPI)NonAf >90 (>60 ml/min/1.73 sqM) Glucose 87 (74-99) mg/dL Plasma Lactic Acid Daniel 1.4 (0.7-2.0) mmol/L Calcium 10.0 (8.4-10.2) mg/dL Total Bilirubin 0.4 (0.2-1.3) mg/dL AST 23 (14-36) U/L ALT 13 (4-34) U/L Alkaline Phosphatase 54 (38-126) U/L C-Reactive Protein 1.9 H (<1.0) mg/dL Total Protein 7.9 (6.3-8.2) g/dL Albumin 4.6 (3.5-5.0) g/dL Amylase 43 (30-110) U/L Lipase 58 (23-300) U/L HCG, Quant 59784.3 mIU/mL Urine Color Urine Appearance (Clear) Urine pH (5.0-8.0) Ur Specific [place] (1.001-1.035) Urine Protein (Negative) Urine Glucose (UA) (Negative) Urine Ketones (Negative) Urine Blood (Negative) Urine Nitrite (Negative) Urine Bilirubin (Negative) Urine Urobilinogen (<2.0) mg/dL Ur Leukocyte Esterase (Negative) Urine RBC (0-5) /hpf Urine WBC (0-5) /hpf Ur Squamous Epith Cells (0-4) /hpf Urine Bacteria (None) /hpf Urine Mucus (None) /hpf Urine HCG, Qual (Not Detectd) Disposition Clinical Impression: UTI in , Threatened Disposition: HOME SELF-CARE Condition: Fair Instructions (If sedation given, give patient instructions): Threatened Miscarriage (ED), Urinary Tract Infection in (ED) Additional Instructions: Follow-up with PCP and [facility]. Report back to ER with any new or worsening symptoms. This includes but is not limited to worsening pain, fevers, vomiting. Prescriptions: Cephalexin [Keflex] 500 mg PO Q12HR 14 Days #28 cap Vit No.179/Iron/Folic [ Tablet] 1 each PO DAILY #30 tab Ondansetron Odt [Zofran Odt] 4 mg PO Q8HR PRN #20 tab PRN Reason: Nausea Is patient prescribed a controlled substance at d/c from ED?: No Referrals: Nonstaff,Physician [Primary Care Provider] - 1-2 days Petra Jimenez DO [Doctor of Osteopathic Medicine] - 1-2 days Time of Disposition: 01:22
[2023-09-22 01:41] VITALS: BP 106/62; PULSE 87; RESP 18; TEMP 98.2
== END 2023-09-22 01:39 | disposition home or self-care (01) ==
LOC: EC 19:12
DX: O23.41 Unspecified infection of urinary tract in pregnancy, first trimester (principal); O20.0 Threatened abortion; N39.0 Urinary tract infection, site not specified; Z3A.01 Less than 8 weeks gestation of pregnancy
CPT/HCPCS: 36415; 80053; 82150; 83605; 83690; 85025; 86140; 81001; 81025; 84702; 87086; 87077; 87186; 76705; 76801; 76817; 99284; 96374; 96375 ×4; 96361 ×3; 96376; J2270; J2765; J2405; J0696; J1170 ×2